=== PATIENT | female | born 1990 | race Caucasian/White ===

== ENCOUNTER 2022-11-20 03:16 | Inpatient (IN) ==
[2022-11-20] MEDS ORDERED: LIDOCAINE 1% LOCAL 20 ML VIAL INFIL PRN (03:36)
[2022-11-20] MEDS ORDERED: OXYTOCIN 30 UNITS/500 ML BAG IV PRN ×2 (03:36→08:49)
[2022-11-20] MEDS ORDERED: LACTATED RINGER'S 1,000 ML IV PRN (03:36)
--- NOTE | 2022-11-20 03:42 | History & Physical Report ---
Date of Service November 20, 2022 Assessment & Plan (1) Active labor at term: Plan: 32-year-old G1, P0 at 40 weeks and 5 days of gestation presenting today with regular contractions and cervical change, in active labor, Vital signs stable afebrile, No medical problems, heart rate reassuring, GBS negative, Desires epidural for pain, Plan to admit, monitor, labs, epidural for pain and anticipate , All questions were answered. (2) Post-term , 40-42 weeks of gestation: History of Present Illness Primary Care Provider: NO PCP Patient is a 32-year-old G1, P0 at 40 weeks and 5 days of gestation who started to have contractions around 1 AM this morning. They got more painful and regular, every 2 to 3 minutes for the last hour or so. She denies leakage of fluid or vaginal bleeding. She reports good movements. Her has been uncomplicated except Rh- and she was given RhoGAM at 28 weeks. She denies any medical problems. GBS negative. Allergies Allergy/AdvReac Type Severity Reaction Status Date / Time No Known Allergies Allergy Unverified 11/20/22 03:38 Home Medications Medication Instructions Recorded Confirmed Type cyanocobalamin (vitamin B-12) 1,000 mcg PO DAILY 11/20/22 11/20/22 History 1,000 mcg tablet (Vitamin B-12) vit no.95-ferrous 1 tab PO DAILY 11/20/22 11/20/22 History fumarate 28 mg-folic acid 800 mcg tablet () Patient History Medical History No known health problems Surgical History [place] teeth extracted 2014 Family History Grandmother (Maternal) Breast cancer Social History Hx Alcohol Use: No Hx Substance Use: No Preferred Language: Iraqi Beliefs That Will Affect Care: None marital status: marital status details: Juan MartinezWiqtbe-[phone] Current Living Situation: Spouse current occupational status: employed current occupation: FARM CONTRACTOR Feels Safe at Home: Yes Diet: regular 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 Review of Systems as per Subjective / HPI Physical Exam Constitutional: WD/WN, vitals as above well developed, well nourished and + acute distress (With contractions) Genitourinary: normal external appearance OB Exam Abdomen: + vertex Manual OB Exam: + cervical dilation 5 cm, + cervical effacement 90% and + station -1 OB Exam Monitor Tracing: + external uterine monitor used and + category I
[2022-11-20] MEDS ORDERED: BUTORPHANOL TARTRATE 1 MG/ML VIAL IV ONE (04:11)
[2022-11-20 04:19] LABS: Hemoglobin 14.1 g/dl (12.0-16.0); Mean Corpuscular Hemoglobin 33.9 pg (25.0-34.0); Mean Corpuscular Hgb Conc 35.3 g/dL (32.0-36.0); Mean Corpuscular Volume 96.2 fL (80.0-100.0); Mean Platelet Volume 11.7 fL (9.4-12.4); Platelet Count 211 K/uL (130-400); RDW Coefficient of Variation 14.1 % (11.5-14.5); RDW Standard Deviation 49.8 fL (36.4-46.3); Red Blood Count 4.16 M/uL (4.20-5.40); White Blood Count 12.36 K/ul (4.8-10.8)
[2022-11-20] MEDS ORDERED: LIDOCAINE 2%/EPINEPHRINE 1:200,000 20 ML PF ONE (04:28)
[2022-11-20] MEDS ORDERED: SODIUM CHLORIDE 0.9% PF INJ 10 ML VIAL ONE (04:28)
[2022-11-20] MEDS ORDERED: BUPIVACAINE 0.25% PF 30 ML VIAL ONE (04:28)
[2022-11-20] MEDS ORDERED: fentaNYL citrate PF 100 MCG/2 ML VIAL ONE (04:28)
[2022-11-20] MEDS ORDERED: fentaNYL 2MCG/ML ROPIVACAINE 1.25MG/ML 100 ML BAG EPI ONE (04:29)
--- NOTE | 2022-11-20 04:29 | Obstetrical Progress Note ---
Date of Service November 20, 2022 Assessment & Plan Admission and Anticipated Discharge Date Admission Date: November 20, 2022 Subjective Patient is getting more painful and feels pressure Awaiting for epidural VE; 8/ 90%/ 0 station, no bag FHR categ I Ctxs q 2-3 min Continue to monitor closely Results & Data Vital Signs (Past 12 Hours) Vital Signs Temp Pulse Resp BP 11/20/22 03:29 20 11/20/22 03:29 36.8 C 20 11/20/22 04:01 75 126/80 11/20/22 03:40 18
[2022-11-20] MEDS ORDERED: fentaNYL 2MCG/ML ROPIVACAINE 1.25MG/ML 100 ML BAG EPI PRN (05:15)
[2022-11-20] MEDS ORDERED: fentaNYL citrate PF 100 MCG/2 ML VIAL EPI STA (05:15)
[2022-11-20] MEDS ORDERED: BUPIVACAINE 0.25% PF 30 ML VIAL EPI PRN (05:15)
[2022-11-20] MEDS ORDERED: ONDANSETRON INJ 2 MG/ML 2 ML VIAL IV PRN (05:15)
[2022-11-20] MEDS ORDERED: SODIUM CHLORIDE 0.9% PF INJ 10 ML VIAL EPI STA (05:15)
[2022-11-20] MEDS ORDERED: fentaNYL citrate PF 100 MCG/2 ML VIAL EPI PRN (05:15)
[2022-11-20] MEDS ORDERED: LIDOCAINE 2%/EPINEPHRINE 1:200,000 20 ML PF EPI STA (05:15)
[2022-11-20] MEDS ORDERED: diphenhydrAMINE 50 MG/ML VIAL IV PRN (05:15)
[2022-11-20] MEDS ORDERED: LIDOCAINE 2% MPF LOCAL 5 ML VIAL EPI PRN (05:15)
[2022-11-20] MEDS ORDERED: NALBUPHINE HCL INJ 10 MG/ML AMP IV PRN (05:15)
[2022-11-20] MEDS ORDERED: NALOXONE HCL 1 MG in SODIUM CHLORIDE 0.9% 1000ML 1,000 ML IV PRN (05:15)
[2022-11-20] MEDS ORDERED: NALOXONE HCL 0.4 MG/1 ML VIAL/CARP IV PRN (05:15)
[2022-11-20] MEDS ORDERED: SODIUM CHLORIDE 0.9% PF INJ 10 ML VIAL EPI PRN (05:15)
[2022-11-20] MEDS ORDERED: METOCLOPRAMIDE HCL 20 MG in SODIUM CHLORIDE 0.9% 50 ML IV PRN (05:15)
[2022-11-20] MEDS ORDERED: BUPIVACAINE 0.25% PF 30 ML VIAL EPI STA (05:15)
[2022-11-20] MEDS ORDERED: ePHEDrine sulfate 50 MG/ML AMP IV PRN (05:15)
[2022-11-20] MEDS ORDERED: ROPIVACAINE 0.5% PF 5 MG/ML 20 ML VIAL EPI PRN (05:15)
--- NOTE | 2022-11-20 05:15 | Anesthesiology Consultation ---
Date of Service November 20, 2022 Assessment & Plan Chart Review Chart Review: Acceptable Risk for Labor Epidural Consults Requested none ASA ASA2 Proposed Anesthesia Anesthesia Type: Labor Epidural Risk / Benefits Reviewed With: PT / POA / Parent / Guardian, Accepts Plan and Informed Consent Obtained History Height/Weight Height: 5 ft 6 in Weight: 83.007 kg Allergies Allergy/AdvReac Type Severity Reaction Status Date / Time No Known Allergies Allergy Unverified 11/20/22 03:38 Medications Home Medications Medication Instructions Recorded Confirmed Last Taken cyanocobalamin (vitamin B-12) 1,000 mcg PO DAILY 11/20/22 11/20/22 11/19/22 21:00 1,000 mcg tablet (Vitamin B-12) vit no.95-ferrous 1 tab PO DAILY 11/20/22 11/20/22 11/19/22 21:00 fumarate 28 mg-folic acid 800 mcg tablet () Active Medications Generic Name Dose Route Start Last Admin Trade Name Freq PRN Reason Stop Dose Admin Lactated Ringer's 1,000 mls @ 150 mls/hr 11/20/22 03:36 11/20/22 04:40 Lr IV 11/22/22 03:35 150 mls/hr .[id number] PRN Infusion L&D Protocol Protocol NPO Date Last Intake of Fluids: 11/20/22 Time Last Intake of Fluids: 04:30 Date Last Intake of Solids: 11/19/22 Time Last Intake of Solids: 20:30 Past Medical History Medical History No known health problems Exercise / Class Metabolic Activity II 4-5 Yardwork/Stairs/Walk up hill Past Family History Family History Grandmother (Maternal) Breast cancer Past Surgical History Surgical History [place] teeth extracted 2014 Past Anesthesia History No Hx of Anesthesia Complications and No Family Hx of Anesthesia Complications History of PONV No Hx of PONV and No Hx of Motion Sickness Social History Smoking Status: Never smoker Hx Alcohol Use: No Hx Substance Use: No substance use type: does not use Physical Exam Vital Signs Last Vital Signs Temp 36.8 C 05/06/23 03:29 Pulse 61 11/20/22 04:48 Resp 18 11/20/22 03:40 BP 126/80 11/20/22 04:01 Pulse Ox 96 11/20/22 04:48 ENMT Mouth: no TMJ abnormality Thyromental Distance: > or= 3.5 Finger Breadths Mallampati Class: II Neck normal visual inspection and trachea midline; neck extension not limited Respiratory normal respiratory effort Auscultation: lungs clear to auscultation bilaterally Cardiovascular Rate/Rhythm: regular rate and regular rhythm Heart Sounds: no murmur Musculoskeletal Spine: normal cervical ROM Extremities: full ROM of extremities Neurologic moves all extremities Psychiatric Orientation: alert and oriented x 3 Testing Laboratory Results 11/20/22 03:53
[2022-11-20] MEDS ORDERED: MEASLES, MUMPS & RUBELLA VIRUS VIAL SQ ONE (08:49)
[2022-11-20] MEDS ORDERED: bisacodyL 10 MG SUPP PR PRN (08:49)
[2022-11-20] MEDS ORDERED: DIPHTHERIA/TETANUS/PERTUSSIS 0.5mL SYR/VIAL (Age 7+yrs) IM ONE (08:49)
[2022-11-20] MEDS ORDERED: BENZOCAINE 20% AER SPR 82.5 GM CAN EXT PRN (08:49)
[2022-11-20] MEDS ORDERED: oxyCODONE/ACETAMINOPHEN 5mg/325mg TAB PO PRN (08:49)
[2022-11-20] MEDS ORDERED: HYDROCORTISONE ACETATE 25 MG SUPP PR PRN (08:49)
[2022-11-20] MEDS ORDERED: ACETAMINOPHEN 325 MG TAB PO PRN (08:49)
--- NOTE | 2022-11-20 08:53 | Delivery Summary ---
Vaginal Delivery Summary Date of Service November 20, 2022 Vaginal Delivery Summary Patient was found to be fully dilated and desired to push. She pushed for about half an hour and delivered the head without difficulty. The shoulders were delivered with minimal traction and the baby was handed to the mother, the mouth and nose were suctioned and the cord was clamped times and cut. Cord blood was obtained. The vagina and perineum were checked for lacerations. There was a first-degree clitoral laceration in the middle of the upper labia it was pumping blood. It was repaired with 3-0 Vicryl on SH needle with multiple figure of 8 stitches and it was hemostatic. There was a second-degree vaginal lacerations at 7 and 4:00 positions. Those were repaired with 2-0 Vicryl in a running locked fashion skin in a subcuticular fashion. And excellent hemostasis was achieved. The placenta was found to be the vagina delivered spontaneously as intact and complete. Uterus was explored and found to be empty. The lower segment was cleared of all clots and debris's, fundus was firm and EBL was 300 mL. The mom and baby tolerated procedure well. Sponge needle instrument count was correct x2. There was a viable male infant, Apgars 8/9 and weight is pending. No complications happened and I was present during whole procedure.
--- NOTE | 2022-11-20 09:24 | Anesthesia Procedure Note ---
Date of Service November 20, 2022 Anesthesia Post Epidural Note Vital Signs Vital Signs: Temp Pulse Resp BP Pulse Ox 36.6 C 87 18 95/57 L 93 11/20/22 07:06 11/20/22 09:18 11/20/22 09:00 11/20/22 09:18 11/20/22 08:14 Pain Intensity Bilateral Abdomen: Pain Intensity: 2 Notes Mental Status: alert / awake / arousable Nausea / Vomiting: adequately controlled Pain: adequately controlled Airway Patency, RR, SpO2: stable & adequate BP & HR: stable & adequate Hydration State: stable & adequate Neuraxial Anesthesia: was administered and sensory block is resolving Anesthetic Complications: no major complications apparent Epidural: Removed without complications and With tip intact
[2022-11-20] MEDS: IBUPROFEN 600 MG TAB PO PRN ×2 (14:40→20:38)
[2022-11-20] MEDS: DOCUSATE SODIUM 100 MG CAP PO SCH (20:38)
[2022-11-21] MEDS: IBUPROFEN 600 MG TAB PO PRN ×4 (00:47→22:55)
[2022-11-21 06:30] LABS: Hematocrit (blood only) 32.4 % (37.0-47.0); Mean Corpuscular Hemoglobin 33.2 pg (25.0-34.0); Mean Corpuscular Volume 97.9 fL (80.0-100.0); Mean Platelet Volume 11.5 fL (9.4-12.4); Platelet Count 178 K/uL (130-400); RDW Coefficient of Variation 14.4 % (11.5-14.5); RDW Standard Deviation 51.6 fL (36.4-46.3); Red Blood Count 3.31 M/uL (4.20-5.40); White Blood Count 12.45 K/ul (4.8-10.8)
[2022-11-21] MEDS: DOCUSATE SODIUM 100 MG CAP PO SCH ×2 (07:56→20:39)
[2022-11-21] MEDS: PRENATAL VITAMIN 1 TAB PO SCH (07:56)
[2022-11-21] MEDS: FERROUS SULFATE 325 MG TAB PO SCH (07:56)
--- NOTE | 2022-11-21 08:31 | Obstetrical Progress Note ---
Date of Service November 21, 2022 Assessment & Plan (1) Normal course: Continue routine care Anticipate discharge home tomorrow Subjective Ambulation: ambulating normally Voiding: voiding difficulty Passing Gas:: Yes Diet Tolerance:: regular diet Lochia:: Small Feeding Type:: breast feeding Current Pain Level(1-10): 0 Patient doing well at this time, had a Sorto inserted yesterday as she was unable to void, Sorto was removed at 630 this morning. Has not voided yet. Denies any other complaints at this time Physical Exam Constitutional WD/WN, vitals as above Respiratory normal respiratory effort, lungs clear to auscultation Cardiovascular RRR, no murmur, no edema Gastrointestinal (Abdomen) normal bowel sounds, soft, nontender, no hepatosplenomegaly Results & Data Vital Signs (Past 12 Hours) Vital Signs Temp Pulse Resp BP Pulse Ox O2 Del Method 11/21/22 03:45 36.6 C 81 18 96/58 L 96 Room Air 11/20/22 23:09 36.8 C 90 16 101/68 95 Room Air Laboratory Results Laboratory Results WBC 12.45 K/ul (4.8-10.8) H 11/21/22 05:47 RBC 3.31 M/uL (4.20-5.40) L 11/21/22 05:47 Hgb 11.0 g/dl (12.0-16.0) L D 11/21/22 05:47 Hct 32.4 % (37.0-47.0) L 11/21/22 05:47 MCV 97.9 fL (80.0-100.0) 11/21/22 05:47 MCH 33.2 pg (25.0-34.0) 11/21/22 05:47 MCHC 34.0 g/dL (32.0-36.0) 11/21/22 05:47 RDW Std Deviation 51.6 fL (36.4-46.3) H 11/21/22 05:47 RDW Coeff of Sanjiv 14.4 % (11.5-14.5) 11/21/22 05:47 Plt Count 178 K/uL (130-400) 11/21/22 05:47 MPV 11.5 fL (9.4-12.4) 11/21/22 05:47 SARS-CoV-2, RNA, NAAT NEGATIVE (NEGATIVE) 11/20/22 03:55
--- NOTE | 2022-11-21 09:17 | Surgery Consultation ---
Date of Consultation November 21, 2022 Assessment & Plan (1) Pilonidal cyst without infection: 32-year-old female with noninfected pilonidal cyst. No indication for incision and drainage or antibiotics at this time. I discussed the etiology, exacerbating factors, and treatment options of pilonidal disease with the patient. First-line therapy is typically medical with keeping the area free of hair and debris, avoiding pressure and trauma to the area to include sit ups on hard surfaces, long periods of sitting, and any other exacerbating factors. Symptoms are typically treated with warm water soaks. Most pilonidal disease improves as patient's enter their 30s. We discussed surgical options which are typically reserved for patients who have had 2 or more episodes that required incision and drainage, or have chronic inflammation in the area. We discussed the hallmarks of surgical management to include excision of the sinuses and underlying tracts as well as any additional cysts. The wound is then managed with either primary closure, modified closure, were left open to heal by secondary intent. I reviewed the high rate of recurrence, wound complications, and infections with the patient. We also discussed the prolonged recovery following surgery. We discussed the risks of pilonidal cystectomy to include bleeding, infection, recurrence, need for future or more extensive surgery, prolonged wound healing and wound complications, pain, and the risks of anesthesia. At this point there is no indication for antibiotics or acute surgical intervention Recommend warm water soaks, avoid trauma to the area If symptoms worsen could consider course of antibiotics She may follow-up as needed in the general surgery clinic Surgery will sign off, call with questions or concerns (2) state: History of Present Illness Reason for Consultation: Pilonidal cyst Attending Physician: Timothy Ruiz MD History of Present Illness 32-year-old female, surgery consulted for pilonidal cyst. She delivered a healthy baby boy yesterday but over the past 2 weeks has noticed some increased swelling over her sacrum. She had a history of a pilonidal cyst that required incision and drainage several years ago. She has not had any issues since. Otherwise healthy. Allergies Allergy/AdvReac Type Severity Reaction Status Date / Time No Known Allergies Allergy Unverified 11/20/22 03:38 Home Medications Medication Instructions Recorded Confirmed Type cyanocobalamin (vitamin B-12) 1,000 mcg PO DAILY 11/20/22 11/20/22 History 1,000 mcg tablet (Vitamin B-12) vit no.95-ferrous 1 tab PO DAILY 11/20/22 11/20/22 History fumarate 28 mg-folic acid 800 mcg tablet () Patient History Medical History (Updated 11/21/22 @ 09:15 by Mauro Rios DO, FACS) No known health problems Pilonidal cyst without infection state Surgical History [place] teeth extracted 2014 Family History Grandmother (Maternal) Breast cancer Social History Smoking Status: Never smoker Hx Alcohol Use: No Hx Substance Use: No Preferred Language: Romansh Communication Ability: Effective Substance Addiction Coordinator Required: No Beliefs That Will Affect Care: None marital status: marital status details: Juan MartinezNqcebh-[phone] Current Living Situation: Spouse current occupational status: employed current occupation: CUSTOMER ENGAGEMENT MANAGER Other Information That Helps Us Care for You: No Feels Safe at Home: Yes Safety Concerns: Feels Safe At This Time Diet: regular Gender Identity: Female Assistive Devices: Glasses Review of Systems Review of Systems: All systems reviewed & are unremarkable except as noted in HPI & below Physical Exam Constitutional: WD/WN, vitals as above Respiratory: normal respiratory effort, lungs clear to auscultation Cardiovascular: RRR, no murmur, no edema Gastrointestinal (Abdomen): normal bowel sounds, soft, nontender, no hepatosplenomegaly Skin: Noninfected pilonidal cyst, small midline sinus. Results & Data Vital Signs (Past 12 Hours) Vital Signs Temp Pulse Resp BP Pulse Ox O2 Del Method 11/21/22 07:50 36.4 C L 74 18 94/64 L Room Air 11/21/22 03:45 36.6 C 81 18 96/58 L 96 Room Air 11/20/22 23:09 36.8 C 90 16 101/68 95 Room Air PG Care Time/CCT Total # of Minutes Spent Total Time Spent with Patient: Total time spent is greater than 50% in coordination of care (as documented) at patient's floor/unit and/or counseling patient: Coding Level of Care Code 28557 IN/OBS CONSULT LVL 2,35M Diagnoses Pilonidal cyst without infection L05.91 state Z39.2
[2022-11-21] MEDS ORDERED: bisacodyL 5 MG TABEC PO SCH (20:00)
[2022-11-22 06:46] LABS: Hematocrit (blood only) 29.8 % (37.0-47.0); Hemoglobin 10.2 g/dl (12.0-16.0)
[2022-11-22] MEDS: FERROUS SULFATE 325 MG TAB PO SCH (07:49)
[2022-11-22] MEDS: PRENATAL VITAMIN 1 TAB PO SCH (07:49)
[2022-11-22] MEDS: DOCUSATE SODIUM 100 MG CAP PO SCH (07:49)
--- NOTE | 2022-11-22 11:16 | Obstetrical Progress Note ---
Date of Service November 22, 2022 Subjective Ambulation: ambulating normally Voiding: no voiding problems Passing Gas:: Yes Diet Tolerance:: regular diet Lochia:: Small Feeding Type:: breast feeding Current Pain Level(1-10): 0 doing well Physical Exam Constitutional WD/WN, vitals as above Gastrointestinal (Abdomen) Inspection/Auscultation: abdomen normal to inspection Musculoskeletal Extremities: extremities normal to inspection Skin no rashes, warm and dry Neurologic patellar DTR's 2+ bilat, sensation intact Psychiatric A+Ox3, euthymic affect Results & Data Vital Signs (Past 12 Hours) Vital Signs Temp Pulse Resp BP O2 Del Method 11/22/22 08:10 36.6 C 73 18 98/64 L Room Air Laboratory Results 11/20/22 11/20/22 11/21/22 03:53 03:55 05:47 WBC 12.36 H 12.45 H RBC 4.16 L 3.31 L Hgb 14.1 11.0 L D Hct 40.0 32.4 L MCV 96.2 97.9 MCH 33.9 33.2 MCHC 35.3 34.0 RDW Std Deviation 49.8 H 51.6 H RDW Coeff of Sanjiv 14.1 14.4 Plt Count 211 178 MPV 11.7 11.5 SARS-CoV-2, RNA, NAAT NEGATIVE Blood Type Antibody Screen Screen 11/21/22 11/22/22 05:47 06:10 WBC RBC Hgb 10.2 L Hct 29.8 L MCV MCH MCHC RDW Std Deviation RDW Coeff of Sanjiv Plt Count MPV SARS-CoV-2, RNA, NAAT Blood Type O Negative Antibody Screen NEGATIVE Screen Negative
[2022-11-22] MEDS: IBUPROFEN 600 MG TAB PO PRN (11:26)
== END 2022-11-22 13:35 | disposition home or self-care (01) | DRG 807 ==
LOC: OPB 03:16 → 4S1 03:21 → 4E2 14:05

== ENCOUNTER 2024-10-25 22:09 | Inpatient (IN) ==
[2024-10-25] MEDS ORDERED: LIDOCAINE 1% LOCAL 20 ML VIAL INFIL PRN (22:51)
[2024-10-25] MEDS: LACTATED RINGER'S 1,000 ML IV PRN (23:05)
--- NOTE | 2024-10-25 23:26 | History & Physical Report ---
Date of Service October 25, 2024 Assessment & Plan Admission and Anticipated Discharge Date Admission Date: October 25, 2024 History of Present Illness Chief Complaint: onset of labor at term Primary Care Provider: NO PCP 34 f P1001 at 40.5 weeks presents to L&D in active labor. GBS is negative. Allergies Allergy/AdvReac Type Severity Reaction Status Date / Time No Known Allergies Allergy Unverified 11/20/22 03:38 Home Medications Medication Instructions Recorded Confirmed Type vit no.95-ferrous 1 tab PO DAILY 11/20/22 10/25/24 History fumarate 28 mg-folic acid 800 mcg tablet () B-6-500 PO DAILY 10/25/24 History Colace PO PRN Constipation 10/25/24 History iron 325 mg PO DAILY 10/25/24 10/25/24 History Patient History Medical History No known health problems Surgical History [place] teeth extracted 2014 Family History Grandmother (Maternal) Breast cancer Social History Smoking Status: Never smoker Hx Alcohol Use: No Hx Substance Use: No Preferred Language: Polish Communication Ability: Effective Core Shaper Top Required: No Beliefs That Will Affect Care: None marital status: marital status details: Juan MartinezMzqmnl-[phone] Current Living Situation: Spouse current occupational status: employed current occupation: OPERATING ROOM ASSISTANT Other Information That Helps Us Care for You: No Feels Safe at Home: Yes Safety Concerns: Feels Safe At This Time Diet: regular Gender Identity: Female Assistive Devices: Glasses OB History x1 CHICKEN CATCHER History neg Review of Systems All systems reviewed & are unremarkable except as noted in HPI & below Physical Exam Constitutional: WD/WN, vitals as above Eyes: PERRL, conjunctivae normal, anicteric sclerae Respiratory: normal respiratory effort, lungs clear to auscultation Cardiovascular: Rate/Rhythm: regular rate and regular rhythm Gastrointestinal (Abdomen): Inspection/Auscultation: abdomen normal to inspection Musculoskeletal: Extremities: extremities normal to inspection Psychiatric: A+Ox3, euthymic affect Genitourinary: Manual OB Exam: + cervical dilation 6 cm, + cervical effacement 90% and + station -1 OB Exam Monitor Tracing: + external FHT monitor used, + external uterine monitor used, + category I and + normal FHT variability Results & Data Vital Signs (Past 12 Hours) Vital Signs Temp Pulse Resp BP 10/25/24 22:42 18 10/25/24 22:42 36.5 C 18 10/25/24 22:33 81 109/68 10/25/24 22:28 36.5 C 18
[2024-10-25 23:29] LABS: Hematocrit (blood only) 38.4 % (37.0-47.0); Hemoglobin 13.1 g/dl (12.0-16.0); Mean Corpuscular Hemoglobin 32.9 pg (25.0-34.0); Mean Corpuscular Hgb Conc 34.1 g/dL (32.0-36.0); Mean Corpuscular Volume 96.5 fL (80.0-100.0); Mean Platelet Volume 11.4 fL (9.4-12.4); Platelet Count 191 K/uL (130-400); RDW Coefficient of Variation 14.6 % (11.5-14.5); Red Blood Count 3.98 M/uL (4.20-5.40); White Blood Count 10.58 K/ul (4.8-10.8)
[2024-10-25] MEDS ORDERED: ePHEDrine sulfate 50 MG/ML AMP IV PRN (23:37)
[2024-10-25] MEDS ORDERED: NALBUPHINE HCL INJ 10 MG/ML AMP IV PRN (23:37)
[2024-10-25] MEDS ORDERED: NALOXONE HCL 0.4 MG/1 ML VIAL/CARP IV PRN (23:37)
[2024-10-25] MEDS ORDERED: ROPIVACAINE 0.5% PF 5 MG/ML 20 ML VIAL EPI PRN (23:37)
[2024-10-25] MEDS ORDERED: BUPIVACAINE 0.25% PF 30 ML VIAL EPI PRN (23:37)
[2024-10-25] MEDS ORDERED: SODIUM CHLORIDE 0.9% PF INJ 10 ML VIAL EPI PRN (23:37)
[2024-10-25] MEDS ORDERED: fentaNYL citrate PF 100 MCG/2 ML VIAL EPI PRN (23:37)
[2024-10-25] MEDS ORDERED: LIDOCAINE 2% MPF LOCAL 5 ML VIAL EPI PRN (23:37)
[2024-10-25] MEDS ORDERED: NALOXONE HCL 1 MG in SODIUM CHLORIDE 0.9% 1,000 ML IV PRN (23:37)
[2024-10-25] MEDS ORDERED: fentANYL 2 MCG/ML BUPIVacaine 0.125%-NSS 100ML BAG EPI PRN (23:37)
[2024-10-25] MEDS ORDERED: diphenhydrAMINE 50 MG/ML VIAL IV PRN (23:37)
--- NOTE | 2024-10-25 23:37 | Anesthesiology Consultation ---
Date of Service October 25, 2024 Assessment & Plan Chart Review Chart Review: Acceptable Risk for Labor Epidural Consults Requested none History Height/Weight Height: 5 ft 6 in Weight: 82.554 kg Allergies Allergy/AdvReac Type Severity Reaction Status Date / Time No Known Allergies Allergy Unverified 11/20/22 03:38 Medications Home Medications Medication Instructions Recorded Confirmed Last Taken vit no.95-ferrous 1 tab PO DAILY 11/20/22 10/25/24 10/24/24 21:00 fumarate 28 mg-folic acid 800 mcg tablet () B-6-500 PO DAILY 10/25/24 10/24/24 21:00 Colace PO PRN Constipation 10/25/24 10/24/24 21:00 iron 325 mg PO DAILY 10/25/24 10/25/24 10/24/24 21:00 Active Medications Generic Name Dose Route Start Last Admin Trade Name Freq PRN Reason Stop Dose Admin Lactated Ringer's 1,000 mls @ 125 mls/hr 10/25/24 22:51 10/25/24 23:05 Lr IV 10/26/24 22:50 999 mls/hr .Q8H PRN Administration L&D Protocol Protocol Past Medical History Medical History No known health problems Past Family History Family History Grandmother (Maternal) Breast cancer Past Surgical History Surgical History [place] teeth extracted 2014 Social History Smoking Status: Never smoker Hx Alcohol Use: No Hx Substance Use: No substance use type: does not use Physical Exam Vital Signs Last Vital Signs Temp 36.5 C 10/25/24 22:42 Pulse 81 10/25/24 22:33 Resp 18 10/25/24 22:42 BP 109/68 10/25/24 22:33 Testing Laboratory Results 10/25/24 23:09
[2024-10-25] MEDS: fentANYL 2 MCG/ML BUPIVacaine 0.125%-NSS 100ML BAG ONE (23:58)
[2024-10-25] MEDS: LIDOCAINE 2%/EPINEPHRINE 1:200,000 20 ML PF ONE (23:58)
[2024-10-26] MEDS: LIDOCAINE 2%/EPINEPHRINE 1:200,000 20 ML PF EPI STA (00:05)
[2024-10-26] MEDS: fentaNYL citrate PF 100 MCG/2 ML VIAL EPI STA (00:05)
[2024-10-26] MEDS: SODIUM CHLORIDE 0.9% PF INJ 10 ML VIAL EPI STA (00:05)
[2024-10-26] MEDS: BUPIVACAINE 0.25% PF 30 ML VIAL EPI STA (00:05)
[2024-10-26] MEDS: SODIUM CHLORIDE 0.9% PF INJ 10 ML VIAL ONE (00:11)
[2024-10-26] MEDS: fentaNYL citrate PF 100 MCG/2 ML VIAL ONE (00:11)
[2024-10-26] MEDS: BUPIVACAINE 0.25% PF 30 ML VIAL ONE (00:11)
[2024-10-26] MEDS: ePHEDrine sulfate 50 MG/ML AMP ONE (00:11)
[2024-10-26] MEDS: OXYTOCIN 30 UNITS/NSS 30 UNITS/500 ML BAG IV PRN (02:43)
[2024-10-26] MEDS ORDERED: OXYTOCIN 30 UNITS/NSS 30 UNITS/500 ML BAG IV PRN (02:58)
[2024-10-26] MEDS ORDERED: HYDROCORTISONE ACETATE 25 MG SUPP PR PRN (02:58)
[2024-10-26] MEDS ORDERED: BENZOCAINE 20% SPRY 85 APPLN/85 GM CAN EXT PRN (02:58)
[2024-10-26] MEDS ORDERED: bisacodyL 10 MG SUPP PR PRN (02:58)
--- NOTE | 2024-10-26 03:01 | Delivery Summary ---
Vaginal Delivery Summary Date of Service October 26, 2024 Vaginal Delivery Summary i was called for delivery and patient delivered spontaneously live female by nurse with no complications. Apgars 8/9 birthweight pending. Cord blood obtained followed by spontaneous delivery of intact placenta. No tears. QBL 100 ml. Final sponge and instrument counts are correct. Mom and baby stable.
[2024-10-26] MEDS: DIPHTHER/TETAN/PERTUS Vaccine (Tdap, Adol/Adult) 0.5mL IM ONE (03:18)
--- NOTE | 2024-10-26 03:30 | Anesthesia Procedure Note ---
Date of Service October 26, 2024 Anesthesia Post Epidural Note Vital Signs Vital Signs: Temp Pulse Resp BP Pulse Ox 37.0 C 70 18 103/66 100 10/26/24 01:54 10/26/24 03:15 10/26/24 01:54 10/26/24 03:15 10/26/24 02:43 Pain Intensity Abdomen: Pain Intensity: 8 Notes Mental Status: alert / awake / arousable and participated in evaluation Nausea / Vomiting: adequately controlled Pain: adequately controlled Airway Patency, RR, SpO2: stable & adequate BP & HR: stable & adequate Hydration State: stable & adequate Neuraxial Anesthesia: was administered and sensory block is resolving Anesthetic Complications: no major complications apparent and Pt Satisfied with anesthetic care Epidural: Removed without complications and With tip intact
--- OUTSIDE RECORDS SUMMARY | 2024-10-26 03:39 | External Medical Summary | Summary of Care ---
Author Name Unknown Organization [facility] Address [address] [facility] [place] [address] Phone [phone] Care Team Providers Care Solder Technician Name Role Phone Unavailable Primary Care Provider Unavailabl e Reason for Visit * Reason Comments Return Visit Encounter Details Date Type Department Care Team (Late st Contact Info) Description 10/11/2024 1:15 PM EDT Office Visit Gynecology/Obstetics [place] [address] [place] [phone] Teena Ly PA-C [address] [place] [phone] Rh negative, antepartum*; Supervision of other normal , antepartum; Marginal insertion of umbilical cord affecting management of mother Allergies No known active allergiesdocumented as of this encounter (statuses as of 10/11/2024) Medications /Folic Acid+DHA 27-0.8-200 MG Oral Capsule Take by mouth . Active Acetaminophen 325 MG Oral Tablet (Tylenol) Take 3 Tablets by mouth every 8 hours as needed for Pain, Mild or Pain, Moderate. Alternate with Ibuprofen 30 Tablet 4 Active Ondansetron 4 MG Oral Tablet Disintegrating (Zofran)Indication s: related nausea, antepartum Place 1 Tablet on tongue every 8 hours as needed for Nausea. dissolve on tongue. 45 Tablet 1 4 Active B-6 100 MG Oral Tablet Take by mouth. Active Famotidine 20 MG Oral Tablet (Pepcid) Take 1 Tablet by mouth at bedtime as needed for Heartburn. 30 Tablet 2 5 Active Ferrous Sulfate 325 (65 Fe) MG Oral Tablet (Feosol)Indication s:Antepartum anemia complicating Take 1 Tablet by mouth in the morning. 90 Tablet 2 5 Active documented as of this encounter (statuses as of 10/11/2024) Active Problems Problem Noted Date Diagnosed Date Marginal insertion of umbili jaycob cord affecting management of mother 09/02/2024 Overview (09/16/2024): Declines growth ultrasound. Will continue to monitor fundal height. Supervision of other normal , antepartu 04/24/2024 Overview (09/16/2024): Estimated Date of Delivery: 11/02/24 Blood type: O-, rhogam given on 08/13/2024. Rubella not immune/ NIPT: declines S/p anatomy ultrasound. S/p CBC - anemia on iron. Passed 1 hour glucose test. TDAP vaccine completed. Plans to breastfeed. Patient is going to check insurance about breast pump. contraception: fertility awareness. GBS at 36 weeks related nausea, antepartum 04/24/2024 Retained products of conception after miscarriag e 10/26/2023 Missed 10/26/2023 Rh negative, antepartum 09/15/2023 Overview (09/02/2024): Rhogam given on 08/13/2024. Varicose veins during 09/14/2022 Overview (09/14/2022): Varicose veins in right ankle area. Patient asymptomatic. Antepartum anemia complicating 023 Overview (09/16/2024): Ferritin 16. Taking iron. Rh negative status during in third tri mester 06/14/2022 Overview (08/24/2022): Rhogam given on 08/24/2022 at 28 weeks, 1 day. Sebaceous cyst 12/25/2020 Estimated Date of Delivery Comme nts Yes 11/02/2024 Based on last me nstrual period of 01/27/2024 (Exact Date) documented as of this encounter (statuses as of 10/11/2024) Resolved Problems Problem Noted Date Diagnosed Date Resolved Date Supervision of normal first , antepartum 05/03/2022 08/28/2024 Overview (11/02/2022): MARY KATE 11/15/2022 Rub/Varc immune O negative - Rhogam given on 08/24/2022. Influenza vaccine: Pt reported 05/09/2022. NIPT:Pt declines upon counseling. Cystic fibrosis: Pt declines upon counseling. MSAFP at 16 to 22 weeks. Pt declines upon counseling. S/p anatomy ultrasound - anatomy and growth normal. VARIABLE presentation. CBC show anemia - on vitamin B12. Passed one hour glucose test. Tdap vaccine completed. GBS negative. Contraceptive: fertility awareness. Desires to breastfeed. Has information about breast pump. Note: Desires [place] delivery. Constipation during pregnanc y in third trimester 05/03/2022 09/28/2022 Overview (07/16/2022): Has Colace if needed. Nausea and vomiting in 05/03/2022 09/28/2022 Overview (05/03/2022): She reports improved with Zofran. She declines further management at this time. documented as of this encounter (statuses as of 10/11/2024) Immunizations Name Administration Dates Next Due Hepatitis A, Ped/Adol., 18 year and below, 2-Dos e 03/14/2013 IPV - Polio Virus Vaccine (Inact) 03/05/2013 TDAP (age 10 and older)(Boostrix) 08/24/2022 TDAP, Age 7 and older, IM (Adacel) 09/12/2024 Yellow Fever Vaccine, Live (YF-Vax) 03/05/2013 documented as of this encounter Social History Tobacco Use Types Packs/Day Years Used Date Smoking Tobacco: Never Smokeless Tobacco: Never Alcohol Use Standard Drinks/Week Comments Not Currently 0 (1 standard drink = 0.6 oz pur e alcohol) PHQ-2 Answer Date Recorded PHQ Adult Total Score 0 12/23/2020 Hunger Vital Sign Answer Date Recorded Within the past 12 months, y ou worried that your food would run out before you got the money to buy more. Never true 06/12/20 24 Within the past 12 months, t he food you bought just didn't last and you didn't have money to get more. Never true 06/12/2024 Lewis Depression Scale Answer Date Recorded Lewis Depression Scale Total 1 09/26/2024 The thought of harming myself has occurred to me . Never 09/26/2024 Childcare Answer Date Recorded Do you feel overwhelmed with taking care of a child, family member or friend? No 06/12/2024 Does your family need help f inding childcare? (Household - for ages 0-17 years) Not on file 06/12/2024 Clothing Answer Date Recorded Have you been unable to get clothing when it was really needed? No 06/12/2024 Is your family able to get c lothes or diapers when needed? (Household - for ages 0-17 years) Not on file 06/12/2024 Personal Safety Answer Date Recorded Do you feel unsafe or have concerns for your saf ety? No 06/12/2024 Do you have concerns for you r family's safety? (Household - for ages 0-17 years) Not on file 06/12/2024 Utilities Answer Date Recorded Do you have trouble paying y our heating, water, or electric bill? No 06/12/2024 Is your family able to pay t he heat, water, or electric bill? (Household - for ages 0-17 years) Not on file 06/12/2024 Does your family have access to good internet? (Household - for ages 0-17 years) Not on file 06/12/2024 Employment Status Answer Date Recorded Are you unemployed or without regular income? No 06/12/2024 Does the household have a re gular source of income? (Household - for ages 0-17 years) Not on file 06/12/2024 Social Connections Answer Date Recorded How often do you feel lonely or isolated from th ose around you? Never 06/12/2024 Financial Resource Strain Answer Date R ecorded Do you have any trouble payi ng for your medications, or do you think you might in the future? No 06/12/2024 Does your family have troubl e paying for medicine? (Household - for ages 0-17 years) Not on file 06/12/2024 Transportation Needs Answer Date Record ed Do you have trouble getting a ride to medical visits or work? (Adult - for ages 18 years and over) Not on file 06/12/2024 Does your family have a hard time getting a ride to doctors visits? (Household - for ages 0-17 years) Not on file 06/12/2024 Has lack of transportation k ept you from medical appointments, meetings, work, or from getting things needed for daily living? Check all that apply. No 06/12/2024 Do you (or your family) have trouble finding or paying for a ride (transportation)? (Household - for ages 0-17 years) Not on file 06/12/2024 Housing Stability Answer Date Recorded Do you currently live in a s helter or have no steady place to sleep at night? No 06/12/2024 Do you think you are at risk of becoming homeless? (Adult - for ages 18 years and over) Not on file 06/12/2024 Does your family worry about paying for your home or becoming homeless? (Household - for ages 0-17 years) Not on file 1 08/12/2023 Are you homeless or worried that you might be in the future? No 06/12/2024 Are you (or your family) stefany eless or worried that you might be in the future? (Household - for ages 0-17 years) Not on file Food Insecurity Answer Date Recorded Do you need food for this week? No 06/12/2024 Are you able to get enough f ood for your family? (Household - for ages 0-17 years) Not on file 06/12/2024 Does your family need food t his week? (Household - for ages 0-17 years) Not on file 06/12/2024 Do you always have enough fo od for your family? (Household - for ages 0-17 years) Not on file 06/12/2024 Food Insecurity Answer Date Recorded Within the past 12 months, y ou worried that your food would run out before you got the money to buy more. Never true 06/12/20 24 Within the past 12 months, t he food you bought just didn't last and you didn't have money to get more. Never true 06/12/2024 Do you need food for this week? 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 Please refer to the documented findings and plan of care. This patient's visit today consisted of an evaluation. I was present and confirmed the findings of the history and exam. Fabio Machuca DO * Teena Ly PA-C - 10/11/2024 1:23 PM EDT Rochelle Martinez presents for visit at 36w6d. BP 106/62 | Wt 82.4 kg (181 lb 11.2 oz) | LMP 01/27/2024 (Exact Date) | BMI 27.63 kg/m² | BSA 1.99m² Doing well. Denies vaginal bleeding, leaking of fluid, vaginal pressure, contractions, abdominal pain, or abnormal vaginal discharge. Denies headaches, blurry vision, or right upper quadrant pain. Patient states she feels good movement. Physical Exam General: alert and oriented, no acute distress Pulmonary: normal respiratory effort, no accessory muscle use. Abdomen: gravid, soft, non-tender heart rate: 130s bpm Fundal height: 37cm Extremities: no edema bilaterally ASSESSMENT/PLAN: 1. Supervision of other normal , antepartum - GBS neg - Cephalic presentation as of 10/03/24 - discussed post dates induction, patient would like to see if she can be induced 11/05. Advised will call L&D and see if date is available 2. Rh negative, antepartum - Rhogam given 08/13/24 3. Marginal insertion of umbilical cord affecting management of mother - fundal height WNL Counseled patient to call triage/go to labor and delivery if she has any vaginal bleeding, leaking of fluid, vaginal pressure, 6 or more painful contractions in an hour, abdominal pain, decreased movements, headaches, blurry vision, or right upper quadrant pain. Patient verbalized understanding. RTO in 1 weeks for return appointment or sooner if any concerns. Teena Ly PA-C documented in this encounter Nursing Notes * Jessa Owens LPN - 10/11/2024 1:19 PM EDT Patient here for BRI Denies concerns documented in this encounter Plan of Treatment Upcoming Encounters Date Type Department Care Team (Latest Contact Info) Description 10/17/2024 1:15 PM EDT Office Visit Gynecology/Obstetic s [place] [address] [facility] [place] [phone] Teena Ly PA-C [address] [place] [phone] 10/24/2024 3:45 PM EDT Office Visit Gynecology/Obstetic s [place] [address] [place] [phone] Lisa Wyatt PA-C [address] [place] [address] 10/31/2024 12:45 PM EDT Office Visit Gynecology/Obstetic s [place] [address] [place] [phone] Teena Ly PA-C [address] [place] [phone] 11/05/2024 8:00 PM EDT Hospital Encounter [email or web address] [place] Women's Lower Level 1st Floor [address] [place] [address] [facility] [address] [place] [address] 11/05/2024 8:00 PM EDT - 11/05/2024 9:20 PM EDT Surgery OBTR [facility], Women's Lower Level 1st Floor [address] [place] [address] [facility] [address] [place] [address] INDUCTION FOR VAGINAL DELIVERY Scheduled Procedures Name Priority Associated Diagnoses Date/Ti me INDUCTION FOR VAGINAL DELIVERY 40 weeks gestation of 11/05/2024 8:00 PM EDT Health Maintenance Due Date Last Done Comments Hepatitis B Vaccine (1 of 3 - 19+ 3-dose series) 2011 Lipid Panel 2012 Depression Screening 12/23/2021 12/23/2020 COVID-19 Vaccine (2023-2 5 season) 2024 Influenza Vaccine (FLU shot) (#1) 2024 Pap Smear 09/14/2026 09/14/2023, 01/02/2021 Cervical Cancer Screening 09/14/2028 HPV/Co-Test 09/14/2028 09/14/2023 DTap/Tdap Vaccines (3 - Td o r Tdap) 09/12/2034 09/12/2024, 08/24/2022 HPV (Gardasil) Vaccine Aged Out No lo nger eligible based on patient's age to complete this topic MENINGOCOCCAL (MENACTRA/MENVEO) Aged Out No longer eligible b ased on patient's age to complete this topic Meningitis B Vaccine (Bexsero/Trumemba) Aged Out No longer eligible b ased on patient's age to complete this topic Pneumococcal Vaccine: Pediatrics (0 to 5 Years) and At-Risk Patients (6 to 18 Years and 19+ Years) Aged Out No longer eligible based on patient's age to complete this topic documented as of this encounter Medical Devices Not on filedocumented as of this encounter Visit Diagnoses Diagnosis Rh negative, antepartum- Primary Rhesus isoimmunization affecting management of mother, antepartum condition Supervision of other normal , antepartum Marginal insertion of umbilical cord affecting management of mother 40 weeks gestation of state, incidental documented in this encounter Advance Directives * Full Code (Latest Code Status on File) Date Activated Date Inactivated Comments 10/26/2023 3:58 PM 10/26/2023 9:05 PM This order r eflects the patients wishes and were consensually agreed upon. Question Answer Comments Discussion of Advance Direct jessica occurred with: Not Discussed due to patient's condition"
--- OUTSIDE RECORDS SUMMARY | 2024-10-26 03:39 | External Medical Summary | Summary of Care ---
Author Name Unknown Organization [facility] Address [address] [place] [address] Phone [phone] Care Team Providers Care Instructor Military Science Name Role Phone Unavailable Primary Care Provider Unavailabl e Encounter Details Date Type Department Care Team (Late st Contact Info) Description 10/15/2024 Orders Only Outcomes Research Department [address] [place] [address] Bharati Pierson CHRA [employer] Research Other*[id number] Allergies No known active allergiesdocumented as of this encounter (statuses as of 10/15/2024) Medications /Folic Acid+DHA 27-0.8-200 MG Oral Capsule [...] mouth in the morning. 90 Tablet 2 Active documented as of this encounter (statuses as of 10/15/2024) Active Problems Problem Noted Date Diagnosed Date Marginal insertion of umbili jaycob cord affecting management of mother 09/02/2024 Overview (09/16/2024): Declines growth ultrasound. Will continue to monitor fundal height. Supervision of other normal , antepartu m 04/24/2024 Overview (09/16/2024): Estimated Date of Delivery: [...] iron. Rh negative status during in third [facility] 06/14/2022 Overview (08/24/2022): Rhogam given on 08/24/2022 at 28 weeks, 1 day. Sebaceous cyst 12/25/2020 Estimated Date of Delivery Comme nts Yes 11/02/2024 Based on last me nstrual period of 01/27/2024 (Exact Date) documented as of this encounter (statuses as of 10/15/2024) Resolved Problems Problem Noted Date Diagnosed Date [...] information about breast pump. Note: Desires [place] delivery. Constipation during pregnanc y in third trimester 05/03/2022 09/28/2022 Overview (07/16/2022): Has Colace if needed. Nausea and vomiting in 05/03/2022 09/28/2022 Overview (05/03/2022): She reports improved with Zofran. She declines further management at this time. documented as of this encounter (statuses as of 10/15/2024) Immunizations Name Administration Dates Next Due Hepatitis [...] money to get more. 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 on file N ot on file documented as of this encounter Plan of Treatment Upcoming Encounters Date Type Department Care Team (Latest Contact Info) Description 10/17/2024 1:15 PM EDT Office Visit Gynecology/Obstetic s [place] [address] [place] [phone] Teena Ly PA-C [address] [place] [address] 10/24/2024 3:45 PM EDT Office Visit Gynecology/Obstetic s [place] [address] [place] [address] [place] [address] Lisa Wyatt PA-C [address] [place] [address] 10/31/2024 12:45 PM EDT Office Visit Gynecology/Obstetic s [place] [address] [place] [phone] Teena Ly PA-C [address] [place] [phone] 11/05/2024 8:00 PM EDT Hospital Encounter [id number] [facility], Women's Lower Level 1st Floor [address] [place] [address] Enma Bloom, DO [address] [place], [place] [phone] 11/05/2024 8:00 PM EDT - 11/05/2024 9:20 PM EDT Surgery OBTR [facility], OB Triage, Women's Lower Level 1st Floor [address] [place] [address] Enma Bloom, DO [address] [place] [address] INDUCTION FOR VAGINAL DELIVERY Scheduled Orders Name Type Priority Associated Diagnoses Orde r Schedule MYCODE SUBSEQUENT ADULT Lab Routine [employer] Research Other*[id number] Every 6 Months for 2 Occurrences starting 10/15/2024 until 11/04/2025 Scheduled Procedures Name Priority Associated Diagnoses Date/Ti [...] as of this encounter Visit Diagnoses Diagnosis [employer] Research Other*[id number] 40 weeks gestation of state, incidental documented in this encounter Advance Directives * Full Code (Latest Code Status on File) Date Activated Date Inactivated Comments 10/26/2023 3:58 PM 10/26/2023 9:05 PM This order r eflects the patients wishes and were consensually agreed upon. Question Answer Comments Discussion of Advance Direct jessica occurred with: Not Discussed due to patient's condition
--- OUTSIDE RECORDS SUMMARY | 2024-10-26 03:39 | External Medical Summary | Summary of Care ---
Author Name Unknown Organization [facility] Address [address] [facility] [place] [address] Phone [phone] Care Team Providers Care Dowel Pin Man Name Role Phone Unavailable Primary Care Provider Unavailabl e Encounter Details Date Type Department Care Team (Late st Contact Info) Description 10/24/2024 Telephone Gynecology/Obstetrics [facility] [address] [place] [address] Valery Salazar PA-C [address] [place] [address] Allergies No known active allergiesdocumented as of this encounter (statuses as of 10/25/2024) Medications /Folic Acid+DHA 27-0.8-200 MG Oral Capsule [...] as of this encounter (statuses as of 10/25/2024) Active Problems Problem Noted Date Diagnosed Date Marginal insertion of umbili jaycob cord affecting management of mother 09/02/2024 Overview (09/16/2024): Declines growth ultrasound. Will continue to monitor fundal height. Supervision of other normal , antepartu m 04/24/2024 Overview (10/24/2024): Estimated Date of Delivery: 11/02/24 Blood type: O-, rhogam given on 08/13/2024. Rubella not immune/ NIPT: declines S/p anatomy ultrasound. S/p CBC - anemia on iron. Passed 1 hour glucose test. TDAP vaccine completed. Plans to breastfeed. Patient is going to check insurance about breast pump. contraception: fertility awareness. GBS negative. related nausea, antepartum 04/24/2024 Retained products of [...] as of this encounter (statuses as of 10/25/2024) Resolved Problems Problem Noted Date Diagnosed Date [...] information about breast pump. Note: Desires [place] delivery. Constipation during pregnanc y in third trimester 05/03/2022 09/28/2022 Overview (07/16/2022): Has Colace if needed. Nausea and vomiting in 05/03/2022 09/28/2022 Overview (05/03/2022): She reports improved with Zofran. She declines further management at this time. documented as of this encounter (statuses as of 10/25/2024) Immunizations Name Administration Dates Next Due Hepatitis [...] money to get more. 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 Per Val Mclaughlin yes patient needs to scheduled appointment in the office and see provider to schedule IOL. Scheduled for soonest appt next week. Lisa Silva to make patient aware. documented in this encounter Plan of Treatment Upcoming Encounters Date Type Department Care Team (Latest Contact Info) Description 10/31/2024 12:45 PM EDT Office Visit Gynecology/Obstetic s [place] [address] [place] [phone] Teena Ly PA-C [address] [place] [phone] 10/31/2024 1:30 PM EDT Office Visit Gynecology/Obstetri manuel Cu[place] [address] [place] [address] Valery Salazar PA-C [address] [place] [address] 11/05/2024 8:00 PM EDT Hospital Encounter [id number] [place] Women's [place] Level 1st Floor [address] [place] [address] Merle Enma George, [address] [place] [address] 11/05/2024 8:00 PM EDT - 11/05/2024 9:20 PM EDT Surgery [facility]TR [facility], OB Triage, Women's Lower Level 1st Floor [address] [place] [address] Merle Enma George, [address] [place] [address] INDUCTION FOR VAGINAL DELIVERY Scheduled Procedures Name Priority Associated Diagnoses Date/Ti me INDUCTION FOR VAGINAL DELIVERY 40 weeks gestation of 11/05/2024 8:00 PM EDT Health Maintenance Due Date Last Done Comments Depression Screening 2004 Hepatitis B Vaccine (1 of 3 - 19+ 3-dose series) 2011 Lipid Panel 2012 COVID-19 Vaccine (2023-2 5 season) 2024 Influenza Vaccine (FLU shot) (Season Ended) 2025 Pap Smear 09/14/2026 09/14/2023, 01/02/2021 Cervical Cancer [...] Not on filedocumented as of this encounter Advance Directives * Full Code (Latest Code Status on File) Date Activated Date Inactivated Comments 10/26/2023 3:58 PM 10/26/2023 9:05 PM This order r eflects the patients wishes and were consensually agreed upon. Question Answer Comments Discussion of Advance Direct jessica occurred with: Not Discussed due to patient's condition
--- OUTSIDE RECORDS SUMMARY | 2024-10-26 03:39 | External Medical Summary ---
Author Name Unknown Address Unknown Organization [id number]:[facility]ORY [facility] - [facility] [address] [place] [address] Laboratory Report Ordering Provider Test Date Status VANI LEHMAN 10/03/2024 09:34:28 Final Observation Date Value Abnormality Reference (Units ) Status Streptococcus agalactiae DNA [Presence] in Specimen by ANGELA with probe detection 10/03/2024 09:34:28 Negative Negative Final No Group B Streptococcus det ected by culture-enhanced PCR (amplified probe). GBS GBSCT - [facility] 10/03/2024 09:34:28 0.0 Final GBS SPCCT - [facility] 10/03/2024 09:34:28 31.2 Final Performing Location [facility] - [address] [place] [address]
--- OUTSIDE RECORDS SUMMARY | 2024-10-26 03:39 | External Medical Summary | Summary of Care ---
Author Name Unknown Organization [facility] Address [address] [facility] [place] [address] Phone [phone] Care Team Providers Care Lsat Instructor Name Role Phone Unavailable Primary Care Provider Unavailabl e Reason for Visit * Reason Comments Return Visit Encounter Details Date Type Department Care Team (Late st Contact Info) Description 10/03/2024 8:30 AM EDT Office Visit Gynecology/Obstetics [place] [address] [place] [phone] Teena Ly PA-C [address] [place] [address] Supervision of other normal , antepartum*; Rh negative, antepartum; Marginal insertion of umbilical cord affecting management of mother Allergies No known active allergiesdocumented as of this encounter (statuses as of 10/03/2024) Medications /Folic Acid+DHA 27-0.8-200 MG Oral Capsule [...] as of this encounter (statuses as of 10/03/2024) Active Problems Problem Noted Date Diagnosed Date [...] as of this encounter (statuses as of 10/03/2024) Resolved Problems Problem Noted Date Diagnosed Date [...] information about breast pump. Note: Desires [place] delivery. Constipation during pregnanc y in third trimester 05/03/2022 09/28/2022 Overview (07/16/2022): Has Colace if needed. Nausea and vomiting in 05/03/2022 09/28/2022 Overview (05/03/2022): She reports improved with Zofran. She declines further management at this time. documented as of this encounter (statuses as of 10/03/2024) Immunizations Name Administration Dates Next Due Hepatitis [...] money to get more. 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 BP 108/64 | Wt 82.8 kg (182 lb 8 oz) | LMP 01/27/2024 (Exact Date) | BMI 27.75 kg/m² | BSA 1.99 m² Doing well. Denies vaginal bleeding, leaking of fluid, vaginal pressure, contractions, abdominal pain, or abnormal vaginal discharge. Denies headaches, blurry vision, or right upper quadrant pain. Patient states she feels good movement. Physical Exam General: alert and oriented, no acute distress Pulmonary: normal respiratory effort, no accessory muscle use. Abdomen: gravid, soft, non-tender heart rate: 140sbpm Fundal height: 35cm Extremities: no edema bilaterally Pelvic: external genitalia and vagina anatomy within normal limits Bedside US: cephalic presentation ASSESSMENT/PLAN: 1. Supervision of other normal , antepartum - GBS collected today - Offered repeat CBC to check anemia, patient declines - Cephalic presentation as of 10/03/24 - discussed post dates induction, patient would like to consider dates and will let me know - GROUP B STREP CULTURE/PCR 2. Rh negative, antepartum - Rhogam given [...] documented in this encounter Nursing Notes * Soraida Cabrera CMA - 10/03/2024 8:35 AM EDT Routine OB check. Denies questions or complaints. documented in this encounter Plan of Treatment Upcoming Encounters Date Type Department Care Team (Late st Contact Info) Description 10/11/2024 1:15 PM EDT Office Visit Gynecology/Obstetics [place] [address] [place] [phone] Teena Ly PA-C [address] [place] [phone] 10/17/2024 1:15 PM EDT Office Visit Gynecology/Obstetics [place] [address] [place] [phone] Teena Ly PA-C [address] [place] [phone] 10/24/2024 3:45 PM EDT Office Visit Gynecology/Obstetics [place] [address] [place] [phone] Lisa Wyatt PA-C [address] [place] [address] Pending Results Name Type Priority Associated Diagnoses Date /Time GROUP B STREP CULTURE/PCR Lab Routine Supervision of other normal , antepartum 10/03/2024 9:34 AM EDT Health Maintenance Due Date Last Done Comments Hepatitis B Vaccine (1 of 3 - 19+ 3-dose series) 2011 Depression Screening 12/23/2021 12/23/2020 COVID-19 Vaccine (2023-2 [...] as of this encounter Visit Diagnoses Diagnosis Supervision of other normal , antepartum- Primary Rh negative, antepartum Rhesus isoimmunization affecting management of mother, antepartum condition Marginal insertion of umbilical cord affecting management of mother documented in this encounter Advance Directives * Full Code (Latest Code Status on File) Date Activated Date Inactivated Comments 10/26/2023 3:58 PM 10/26/2023 9:05 PM This order r eflects the patients wishes and were consensually agreed upon. Question Answer Comments Discussion of Advance Direct jessica occurred with: Not Discussed due to patient's condition"
--- OUTSIDE RECORDS SUMMARY | 2024-10-26 03:39 | External Medical Summary | Summary of Care ---
Author Name Unknown Organization [facility] Address [address] [facility] [place] [place] [address] Phone [phone] Care Team Providers Care Rehabilitation Worker Name Role Phone Unavailable Primary Care Provider Unavailabl e Reason for Visit * Reason Comments Return Visit Encounter Details Date Type Department Care Team (Late st Contact Info) Description 10/03/2024 8:30 AM EDT Office Visit Gynecology/Obstetics [place] [address] [place] [phone] Teena Ly PA-C [address] [place] [phone] Supervision of other normal , antepartum*; Rh [...] information about breast pump. Note: Desires [place] delivery. Constipation during pregnanc y in third [...] money to get more. 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
--- OUTSIDE RECORDS SUMMARY | 2024-10-26 03:39 | External Medical Summary | Summary of Care ---
Author Name Unknown Organization [facility] Address [address] [place] [address] Phone [phone] Care Team Providers Care Fuel Testing Technician Name Role Phone Kali Howard PA-C Primary Care Provider [phone] Reason for Visit * Reason Comments Return Visit Encounter Details Date Type Department Care Team (Late st Contact Info) Description 09/12/2024 2:00 PM EST Office Visit Gynecology/Obstetics [place] [address] [place] [address] Lisa Wyatt PA-C [address] [place] [address] Supervision of other normal , antepartum*; Rh negative, antepartum; Marginal insertion of umbilical cord affecting management of mother; Need for prophylactic vaccination with combined ghsnrzlkcv-bfsrako-fi rtussis (DTP) vaccine Allergies No known active allergiesdocumented as of this encounter (statuses as of 09/17/2024) Medications /Folic Acid+DHA 27-0.8-200 MG Oral Capsule Take by mouth . Active Acetaminophen 325 MG Oral Tablet (Tylenol) Take 3 Tablets by mouth every 8 hours as needed for Pain, Mild or Pain, Moderate. Alternate with Ibuprofen 30 Tablet Active Ondansetron 4 MG Oral Tablet Disintegrating (Zofran)Indication s: related nausea, antepartum Place 1 Tablet on tongue every 8 hours as needed for Nausea. dissolve on tongue. 45 Tablet 1 4 Active B-6 100 MG Oral Tablet Take by mouth. Active Ferrous Sulfate 325 (65 Fe) MG Oral Tablet (Feosol)Indication s:Antepartum anemia complicating Take 1 Tablet by mouth in the morning. 30 Tablet 12 5 Active documented as of this encounter (statuses as of 09/17/2024) Active Problems Problem Noted Date Diagnosed Date [...] as of this encounter (statuses as of 09/17/2024) Resolved Problems Problem Noted Date Diagnosed Date [...] information about breast pump. Note: Desires [place] delivery. Constipation during pregnanc y in third trimester 05/03/2022 09/28/2022 Overview (07/16/2022): Has Colace if needed. Nausea and vomiting in 05/03/2022 09/28/2022 Overview (05/03/2022): She reports improved with Zofran. She declines further management at this time. documented as of this encounter (statuses as of 09/17/2024) Immunizations Name Administration Dates Next Due Hepatitis [...] money to get more. Never true 06/12/2024 [place] Depression Scale Answer Date Recorded [place] Depression Scale Total 3 04/24/2024 The thought of harming myself has occurred to me . 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 BP 110/64 | Wt 80 kg (176 lb 6.4 oz) | LMP 01/27/2024 (Exact Date) | BMI 26.82 kg/m² | BSA 1.96 m² Doing well. Denies vaginal bleeding, leaking of fluid, vaginal pressure, contractions, abdominal pain, or abnormal vaginal discharge. Denies headaches, blurry vision, or right upper quadrant pain. Patient states she feels good movement. Patient reports that cold resolved, but has a lingering cough. Patient is taking iron and taking Colace. 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 Patient reports uncomfortable at times, but managing. Physical Exam General: alert and oriented, no acute distress Pulmonary: normal respiratory effort, no accessory muscle use. Abdomen: gravid, soft, non-tender heart rate: 130's bpm Fundal height: 32 cm OB [place] Problems (from 04/12/24 to present) Problem Noted Diagnosed Resolved Marginal insertion of umbilical cord affecting management of mother 09/02/2024 by Lisa Wyatt PA-C No Declines growth ultrasound. Will continue to monitor fundal height. Supervision of other normal , antepartum 04/24/2024 by Lisa Wyatt PA-C No Estimated Date of Delivery: 11/02/24 Blood type: O-, rhogam given on 08/13/2024. Rubella not immune/ NIPT: declines S/p anatomy ultrasound. S/p CBC - anemia on iron. Passed 1 hour glucose test. TDAP vaccine completed. Plans to breastfeed. Patient is going to check insurance about breast pump. contraception: fertility awareness. GBS at 36 weeks Rh negative, antepartum 09/15/2023 by Lisa Wyatt PA-C No Rhogam given on 08/13/2024. Plan: -Patient declines ultrasound at this time. Patient would like to continue to measure fundal height and go from there. -Rhogam given. Tdap completed today. -Taking iron for anemia. -Desires to breastfeed. -Patient is continuing to wear compression stockings. Counseled patient to call triage/go to labor and delivery if she has any vaginal bleeding, leaking of fluid, vaginal pressure, 6 or more painful contractions in an hour, abdominal pain, decreased movements, headaches, blurry vision, or right upper quadrant pain. Patient verbalized understanding. RTO in 2 weeks for return appointment or sooner if any concerns. Lisa Eaton PA-C documented in this encounter Nursing Notes * Roxane Mcdonald RN - 09/12/2024 2:31 PM EST Pre-Administration Time Out Procedure Performed: Yes Patient Identified (Ask Name/Date of ): Yes Does the patient have a fever greater than 101 degrees today? No Patient allergic to latex? No Has the patient ever fainted after receiving an injection? No VFC Stock: No Immunization(s) verified: Yes, Immunization Name: Tdap (Adacel), VIS Sheet(s) given: No Verified Side and Site: Yes Verified Shot(s) with Parent(s)/Patient: Yes * Jessa Owens LPN - 09/12/2024 2:01 PM EST Routine OB check. Denies questions or complaints. documented in this encounter Plan of Treatment Upcoming Encounters Date Type Department Care Team (Late st Contact Info) Description 09/26/2024 12:45 PM EDT Office Visit Gynecology/Obstetics [place] [address] [place] [address] Teena Ly PA-C [address] [place] [address] 10/03/2024 8:30 AM EDT Office [facility] [place] [facility] [phone] Teena Ly PA-C [address] [place] [address] 10/11/2024 1:15 PM EDT Office Visit Gynecology/Obstetics [place] [address] [place] [address] Teena Ly PA-C [address] [place] [address] 10/17/2024 1:15 PM EDT Office Visit Gynecology/Obstetics [place] [address] [place] [phone] Teena Ly PA-C [address] [place] [address] 10/24/2024 3:45 PM EDT Office Visit Gynecology/Obstetics [place] [address] [place] [address] Lisa Wyatt PA-C [address] [place] [address] Health Maintenance Due Date Last Done Comments [...] of umbilical cord affecting management of mother Need for prophylactic vaccination with combined xifihoaone-gecyjip-jbtnkxqfg (DTP) vaccine documented in this encounter Advance Directives * Full Code (Latest Code Status on File) Date Activated Date Inactivated Comments 10/26/2023 3:58 PM 10/26/2023 9:05 PM This order r eflects the patients wishes and were consensually agreed upon. Question Answer Comments Discussion of Advance Direct jessica occurred with: Not Discussed due to patient's condition Care Teams Fuel Testing Technician Relationship Specialty Start Date End Date Kali Howard PA-C PCP - General Physician Lozenge Dough Mixer 01/11/23 documented as of this encounter"
--- OUTSIDE RECORDS SUMMARY | 2024-10-26 03:39 | External Medical Summary | Summary of Care ---
Author Name Unknown Organization [facility] Address [address] [facility] [place] [address] Phone [phone] Care Team Providers Care Electrical Software Engineer Name Role Phone Unavailable Primary Care Provider Unavailabl e Reason for Visit * Reason Comments Return Visit Encounter Details Date Type Department Care Team (Late st Contact Info) Description 10/11/2024 1:15 PM EDT Office Visit Gynecology/Obstetics [place] [address] [place] [phone] Teena Ly PA-C [address] [place] [phone] Rh negative, antepartum*; Supervision of other normal [...] information about breast pump. Note: Desires [place] delivery. Constipation during pregnanc y in third [...] money to get more. 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 [...] 1:15 PM EDT Office Visit Gynecology/Obstetic s [place] [address] [place] [address] Teena Ly PA-C [address] [facility] [place] [address] 10/24/2024 3:45 PM EDT Office Visit Gynecology/Obstetic s [place] [address] [place] [address] Lisa Wyatt PA-C [address] [place] [address] 10/31/2024 12:45 PM EDT Office Visit Gynecology/Obstetic s [place] [address] [place] [address] Teena Ly PA-C [address] [place] [address] 11/05/2024 8:00 PM EDT Hospital Encounter [id number], Women's Lower Level 1st Floor [address] [place] [address] [facility] [address] [place] [address] 11/05/2024 8:00 PM EDT - 11/05/2024 9:20 PM EDT Surgery OBTR [facility], OB Triage, Women's Lower Level 1st Floor [address] [place] [address] [facility] [address] [place] [address] INDUCTION FOR VAGINAL DELIVERY Scheduled Procedures Name [...]
--- OUTSIDE RECORDS SUMMARY | 2024-10-26 03:39 | External Medical Summary | Summary of Care ---
Author Name Unknown Organization [facility] Address [address] [place] [address] Phone [phone] Care Team Providers Care Accreditation Specialist Name Role Phone Kali Howard PA-C Primary Care Provider [phone] Reason for Visit * Reason Comments Return Visit Encounter Details Date Type Department Care Team (Late st Contact Info) Description 09/12/2024 2:00 PM EST Office Visit Gynecology/Obstetics [place] [address] [place] [address] Lisa Wyatt PA-C [address] [place] [address] Supervision of other normal , antepartum*; Rh negative, antepartum; Marginal insertion of umbilical cord affecting management of mother; Need for prophylactic vaccination with combined uvgndhaiap-nwgkhen-lt rtussis (DTP) vaccine Allergies No known active allergiesdocumented as of this encounter (statuses as of 09/16/2024) Medications /Folic Acid+DHA 27-0.8-200 MG Oral Capsule [...] as of this encounter (statuses as of 09/16/2024) Active Problems Problem Noted Date Diagnosed Date [...] as of this encounter (statuses as of 09/16/2024) Resolved Problems Problem Noted Date Diagnosed Date [...] information about breast pump. Note: Desires [place] delivery. Constipation during pregnanc y in third trimester 05/03/2022 09/28/2022 Overview (07/16/2022): Has Colace if needed. Nausea and vomiting in 05/03/2022 09/28/2022 Overview (05/03/2022): She reports improved with Zofran. She declines further management at this time. documented as of this encounter (statuses as of 09/16/2024) Immunizations Name Administration Dates Next Due Hepatitis [...] money to get more. 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 -Desires to breastfeed. Counseled patient to call triage/go to labor [...] in this encounter Nursing Notes * Roxane Mcdonald, RN - 09/12/2024 2:31 PM EST Pre-Administration [...] 09/26/2024 12:45 PM EDT Office Visit Gynecology/Obstetics [place] [address] [facility] [place] [address] Teena Ly PA-C [address] [place] [address] 10/03/2024 8:30 AM EDT Office Visit Gynecology/Obstetics [place] [address] [facility] [place] [address] Teena Ly PA-C [address] [place] [address] 10/11/2024 1:15 PM EDT Office Visit Gynecology/Obstetics [place] [address] [place] [address] Teena Ly PA-C [address] [place] [address] 10/17/2024 1:15 PM EDT Office Visit Gynecology/Obstetics [place] [address] [place] [address] Teena Ly PA-C [address] [place] [address] 10/24/2024 3:45 PM EDT Office Visit Gynecology/Obstetics [place] [address] [place] [phone] Lisa Wyatt PA-C [address] [place] [address] Health Maintenance Due Date Last Done Comments [...] mother Need for prophylactic vaccination with combined vrafiqvhgx-jzefhjc-krhxduwzg (DTP) vaccine documented in this encounter Advance Directives * Full Code (Latest Code Status on File) Date Activated Date Inactivated Comments 10/26/2023 3:58 PM 10/26/2023 9:05 PM This order r eflects the patients wishes and were consensually agreed upon. Question Answer Comments Discussion of Advance Direct jessica occurred with: Not Discussed due to patient's condition Care Teams Accreditation Specialist Relationship Specialty Start Date End Date Kali Howard PA-C PCP - General Physician Copying Machine Repairer 01/11/23 documented as of this encounter"
--- OUTSIDE RECORDS SUMMARY | 2024-10-26 03:39 | External Medical Summary | Summary of Care ---
Author Name Unknown Organization [facility] Address [address] [facility] [address] Phone [phone] Care Team Providers Care Farm Management Adviser Name Role Phone Unavailable Primary Care Provider Unavailabl e Reason for Visit * Reason Comments Return Visit Encounter Details Date Type Department Care Team (Late st Contact Info) Description 10/17/2024 1:15 PM EDT Office Visit Gynecology/Obstetics [place] [address] [place] [address] Teena Ly PA-C [address] [place] [phone] Rh negative, antepartum*; Supervision of other normal , antepartum; Marginal insertion of umbilical cord affecting management of mother Allergies No known active allergiesdocumented as of this encounter (statuses as of 10/17/2024) Medications /Folic Acid+DHA 27-0.8-200 MG Oral Capsule [...] as of this encounter (statuses as of 10/17/2024) Active Problems Problem Noted Date Diagnosed Date [...] as of this encounter (statuses as of 10/17/2024) Resolved Problems Problem Noted Date Diagnosed Date [...] information about breast pump. Note: Desires [place] delivery. Constipation during pregnanc y in third trimester 05/03/2022 09/28/2022 Overview (07/16/2022): Has Colace if needed. Nausea and vomiting in 05/03/2022 09/28/2022 Overview (05/03/2022): She reports improved with Zofran. She declines further management at this time. documented as of this encounter (statuses as of 10/17/2024) Immunizations Name Administration Dates Next Due Hepatitis [...] money to get more. 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 BP 106/64 | Wt 82.9 kg (182 lb 12.8 oz) | LMP 01/27/2024 (Exact Date) | BMI 27.79 kg/m² | BSA 1.99m² Doing well. Denies vaginal bleeding, leaking of fluid, vaginal pressure, contractions, abdominal pain, or abnormal vaginal discharge. Denies headaches, blurry vision, or right upper quadrant pain. Patient states she feels good movement. Patient declines cervical check today Physical Exam General: alert and oriented, no acute distress Pulmonary: normal respiratory effort, no accessory muscle use. Abdomen: gravid, soft, non-tender heart rate: 130 bpms Fundal height: 38 cm Extremities: no edema bilaterally ASSESSMENT/PLAN: 1. Supervision of other normal , antepartum - GBS neg - Cephalic presentation as of 10/03/24 - IOL scheduled 11/05 2. Rh negative, antepartum - Rhogam given [...] Nursing Notes * Soraida Cabrera CMA - 10/17/2024 1:16 PM EDT Routine OB check. Denies questions or complaints. documented in this encounter Plan of Treatment Upcoming Encounters Date Type Department Care Team (Latest Contact Info) Description 10/24/2024 3:45 PM EDT Office Visit Gynecology/Obstetic s [place] [address] [facility] [place] [phone] Lisa Wyatt PA-C [address] [place] [address] 10/31/2024 12:45 PM EDT Office Visit Gynecology/Obstetic s [place] 68 [facility] [place] [address] Teena Ly PA-C 68 [facility] [place] [address] 11/05/2024 8:00 PM EDT Hospital En[place] [id number] 1st Floor [address] [facility] [place] [address] Enma Bloom DO [address] [place] [address] 11/05/2024 8:00 PM EDT - 11/05/2024 9:20 PM EDT Surgery OBTR [facility], OB Triage, Women's Lower Level 1st Floor [address] [place] [address] Drginna, Enma George, DO [address] [place] [address] INDUCTION FOR VAGINAL DELIVERY Scheduled Procedures Name [...]
--- OUTSIDE RECORDS SUMMARY | 2024-10-26 03:39 | External Medical Summary | Summary of Care ---
Author Name Unknown Organization [facility] Address [address] [place] [address] Phone [phone] Care Team Providers Care Online Communications Manager Name Role Phone Kali Howard PA-C Primary Care Provider [phone] [phone] Reason for Visit * Reason Comments Return Visit Encounter Details Date Type Department Care Team (Late st Contact Info) Description 09/26/2024 12:45 PM EDT Office Visit Gynecology/Obstetics [place] [address] [place] [phone] Teena Ly PA-C [address] [place] [address] Supervision of other normal , antepartum*; Rh negative, antepartum; Marginal insertion of umbilical cord affecting management of mother; Antepartum anemia complicating Allergies No known active allergiesdocumented as of this encounter (statuses as of 09/26/2024) Medications /Folic Acid+DHA 27-0.8-200 MG Oral Capsule Take by mouth . Active Acetaminophen 325 MG Oral Tablet (Tylenol) Take 3 Tablets by mouth every 8 hours as needed for Pain, Mild or Pain, Moderate. Alternate with Ibuprofen 30 Tablet 10/26/19 24 Active Ondansetron 4 MG Oral Tablet Disintegrating (Zofran)Indication s: related nausea, antepartum Place 1 Tablet on tongue every 8 hours as needed for Nausea. dissolve on tongue. 45 Tablet 1 04/24/20 24 Active B-6 100 MG Oral Tablet Take by mouth. Active Famotidine 20 MG Oral Tablet (Pepcid) Take 1 Tablet by mouth at bedtime as needed for Heartburn. 30 Tablet 2 09/20/19 25 Active Ferrous Sulfate 325 (65 Fe) MG Oral Tablet (Feosol)Indication s:Antepartum anemia complicating Take 1 Tablet by mouth in the morning. 90 Tablet 2 09/27/19 25 Active Ferrous Sulfate 325 (65 Fe) MG Oral Tablet (Feosol)Indication s:Antepartum anemia complicating Take 1 Tablet by mouth in the morning. 30 Tablet 12 08/14/19 25 025 Discontin ued(Refil l) documented as of this encounter (statuses as of 09/26/2024) Active Problems Problem Noted Date Diagnosed Date [...] ankle area. Patient asymptomatic. Antepartum anemia complicating 02/07/2 023 Overview (09/16/2024): Ferritin 16. Taking iron. Rh negative status during in third tri mester 06/14/2022 Overview (08/24/2022): Rhogam given on 08/24/2022 at 28 weeks, 1 day. Sebaceous cyst 12/25/2020 Estimated Date of Delivery Comme nts Yes 11/02/2024 Based on last me nstrual period of 01/27/2024 (Exact Date) documented as of this encounter (statuses as of 09/26/2024) Resolved Problems Problem Noted Date Diagnosed Date [...] information about breast pump. Note: Desires [place] delivery. Constipation during pregnanc y in third trimester 05/03/2022 09/28/2022 Overview (07/16/2022): Has Colace if needed. Nausea and vomiting in 05/03/2022 09/28/2022 Overview (05/03/2022): She reports improved with Zofran. She declines further management at this time. documented as of this encounter (statuses as of 09/26/2024) Immunizations Name Administration Dates Next Due Hepatitis [...] money to get more. 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 BP 100/68 | Wt 81.2 kg (179 lb) | LMP 01/27/2024 (Exact Date) | BMI 27.22 kg/m² | BSA 1.97 m² Doing well. Denies vaginal bleeding, leaking of fluid, vaginal pressure, contractions, abdominal pain, or abnormal vaginal discharge. Denies headaches, blurry vision, or right upper quadrant pain. Patient states she feels good movement. Physical Exam General: alert and oriented, no acute distress Pulmonary: normal respiratory effort, no accessory muscle use. Abdomen: gravid, soft, non-tender heart rate: 140 bpm Fundal height: 35cm Extremities: no edema bilaterally ASSESSMENT/PLAN: 1. Supervision of other normal , antepartum - doing well, no concerns - Advised GBS culture next appt 2. Rh negative, antepartum Rhogam 08/13/24 3. Marginal insertion of umbilical cord affecting management of mother - declines 3rd trimester growth US 4. Antepartum anemia complicating - Ferrous Sulfate 325 (65 Fe) MG Oral Tablet (Feosol); Take 1 Tablet by mouth in the morning. Dispense: 90 Tablet; Refill: 2 Counseled patient to call triage/go to labor [...] documented in this encounter Nursing Notes * Laura Warren RN - 09/26/2024 12:53 PM EDT Routine OB check. Denies questions or complaints. documented in this encounter Plan of Treatment Upcoming Encounters Date Type Department Care Team (Late st Contact Info) Description 10/03/2024 8:30 AM EDT [facility] [place] [facility] [phone] Teena Ly PA-C 68 [facility] [place] [phone] 10/11/2024 1:15 PM EDT Office Visit Gynecology/Obstetics [place] [address] [facility] [place] [phone] Teena Ly PA-C 68 [place] [phone] 10/17/2024 1:15 PM EDT Office Visit Gynecology/Obstetics [place] [address] [place] [phone] Teena Ly PA-C 68 [place] [phone] 10/24/2024 3:45 PM EDT Office Visit Gynecology/Obstetics [place] [address] [place] [phone] Lisa Wyatt PA-C [address] [place] [address] Health Maintenance Due Date Last Done Comments Hepatitis B Vaccine (1 of 3 - 19+ 3-dose series) 2011 Depression Screening 12/23/2021 12/23/2020 COVID-19 Vaccine ( - 2023-2 5 season) 2024 Influenza Vaccine (FLU shot) [...] of umbilical cord affecting management of mother Antepartum anemia complicating Anemia, antepartum documented in this encounter Advance Directives * Full Code (Latest Code Status on File) Date Activated Date Inactivated Comments 10/26/2023 3:58 PM 10/26/2023 9:05 PM This order r eflects the patients wishes and were consensually agreed upon. Question Answer Comments Discussion of Advance Direct [email or web address] occurred with: Not Discussed due to patient's condition Care Teams Online Communications Manager Relationship Specialty Start Date End Date Kali Howard PA-C PCP - General Physician [facility] 01/11/23 documented as of this encounter"
--- OUTSIDE RECORDS SUMMARY | 2024-10-26 03:40 | External Medical Summary | Summary of Care ---
Author Name Unknown Organization [facility] Address [address] [place] [address] Phone [phone] Care Team Providers Care Feather Boner Name Role Phone Kali Howard PA-C Primary Care Provider [phone] Reason for Visit * Reason Onset Date Comments Order Request 08/13/2024 Encounter Details Date Type Department Care Team ([facility] st Contact Info) Description 08/13/2024 Telephone Gynecology/Obstetics [place] [address] [place] [phone] Teena Ly PA-C [address] [place] [phone] Order Request Allergies No known active allergiesdocumented as of this encounter (statuses as of 08/13/2024) Medications /Folic Acid+DHA 27-0.8-200 MG Oral Capsule [...] MG Oral Tablet Take by mouth. Active Hospital, Clinic, or Other Facility Administered Medication Ordered Dose Route Frequency Start Date End Date Status Rho D Immune Globulin (Rhophylac) inj 300 mcgIndications:Rh negative, antepartum 300 mcg IM ONCE 08/13/2024 08/14/2024 Active documented as of this encounter (statuses as of 08/13/2024) Active Problems Problem Noted Date Diagnosed Date Supervision of other normal , [facility] 04/24/2024 Overview (05/23/2024): Estimated Date of Delivery: 11/02/24 Blood type: O-, rhogam at 28 weeks Rubella not immune/ NIPT: declines Anatomy scan: at 20 weeks Third trimester labs: at 28 weeks TDAP: at 28 weeks Plans to * feed contraception: * GBS at 36 weeks related nausea, antepartum 04/24/2024 Retained products of conception after miscarriag e 10/26/2023 Missed 10/26/2023 Rh negative, antepartum 09/15/2023 Overview (05/23/2024): Rhogam at 28 weeks and with any vaginal bleeding Varicose veins during 09/14/2022 Overview (09/14/2022): Varicose veins in right ankle area. Patient asymptomatic. Antepartum anemia complicating 023 Overview (10/19/2022): Hemoglobin 11.9. Vitamin B12 low. Taking vitamin B12 daily. Ferritin 17. Rh negative status during in [facility] 06/14/2022 Overview (08/24/2022): Rhogam given on 08/24/2022 at 28 weeks, 1 day. Supervision of normal first , [facility] 05/03/2022 Overview (11/02/2022): MARY KATE 11/15/2022 Rub/Varc immune [...] information about breast pump. Note: Desires [place] delivery. Sebaceous cyst 12/25/2020 Estimated Date of Delivery Comme nts Yes 11/02/2024 Based on last me nstrual period of 01/27/2024 (Exact Date) documented as of this encounter (statuses as of 08/13/2024) Resolved Problems Problem Noted Date Diagnosed Date Resolved Date Constipation during pregnanc y in third trimester 05/03/2022 09/28/2022 Overview (07/16/2022): Has Colace if needed. Nausea and vomiting in 05/03/2022 09/28/2022 Overview (05/03/2022): She reports improved with Zofran. She declines further management at this time. documented as of this encounter (statuses as of 08/13/2024) Immunizations Name Administration Dates Next Due Hepatitis A, Ped/Adol., 18 year and below, 2-Dos e 03/14/2013 IPV - Polio Virus Vaccine (Inact) 03/05/2013 TDAP (age 10 and older)(Boostrix) 08/24/2022 Yellow Fever Vaccine, Live (YF-Vax) 03/05/2013 documented [...] money to get more. Never true 06/12/2024 [place] Depression Scale Answer Date Recorded [place] Depression Scale Total 3 04/24/2024 The thought [...] 06/12/2024 Transportation Needs Answer Date Record ed READ ONLY Do you have troubl e getting a ride to medical visits or work? Never True 06/12/2024 Does your family have a hard [...] place to sleep at night? No 06/12/2024 READ ONLY Do you think you a re at risk of becoming homeless? 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 Thank you! documented in this encounter Plan of Treatment Upcoming Encounters Date Type Department Care Team (Late st Contact Info) Description 08/28/2024 3:45 PM EST Office Visit Gynecology/Obstetics [place] [address] [place] [phone] Lisa Wyatt PA-C [address] [place] [address] 09/12/2024 2:00 PM EST Office Visit Gynecology/Obstetics [place] [address] [facility] [place] [phone] Lisa Wyatt PA-C [address] [place], [place] [phone] Health Maintenance Due Date Last Done Comments Hepatitis B Vaccine (1 of 3 - 19+ 3-dose series) 2011 Depression Screening 12/23/2021 12/23/2020 COVID-19 Vaccine (2023-2 5 season) 2024 Influenza Vaccine (FLU shot) (#1) 2024 Pap Smear 09/14/2026 09/14/2023, 01/02/2021 Cervical Cancer Screening 09/14/2028 HPV/Co-Test 09/14/2028 09/14/2023 DTap/Tdap Vaccines (2 - Td o r Tdap) 08/24/2032 08/24/2022 HPV (Gardasil) Vaccine Aged Out No [...] Discussed due to patient's condition Care Teams Feather Boner Relationship Specialty Start Date End Date Kali Howard PA-C [address] [place] [address] [place] [id number] PCP - General Physician [facility] 01/11/23 documented as of this encounter
--- OUTSIDE RECORDS SUMMARY | 2024-10-26 03:40 | External Medical Summary ---
Author Name Unknown Address Unknown Organization [id number]:[facility] - [address] [place] [address] Laboratory Report Ordering Provider Test Date Status VANI LEHMAN 08/13/2024 15:07:47 Final Observation Date Value Abnormality Reference (Units ) Status TSH 08/13/2024 15:07:47 1.10 0.27-4.20 (uIU/mL) Final Performing Location [facility] - [address] [place] [address]
--- OUTSIDE RECORDS SUMMARY | 2024-10-26 03:40 | External Medical Summary ---
Author Name Unknown Address Unknown Organization [id number]:[facility] - [address] [place] [address] Laboratory Report Ordering Provider Test Date Status VANI LEHMAN 08/13/2024 15:07:47 Final Observation Date Value Abnormality Reference (Units ) Status Treponema pallidum Ab [Presence] in Serum by Immunoassay 08/13/2024 15:07:47 Nonreactive Nonreactive Final No serologic evidence of syp hilis. No additional testing clinicially indicated at this time. Consider repeat testing in 2-4 weeks if acute or primary syphilis is suspected. Performing Location [facility] - [address] [place] [address]
--- OUTSIDE RECORDS SUMMARY | 2024-10-26 03:40 | External Medical Summary | Summary of Care ---
Author Name Unknown Organization [facility] Address [address] [place] [address] Phone [phone] Care Team Providers Care Compensation And Benefits Manager Name Role Phone Kali Howard PA-C Primary Care Provider [phone] [phone] Reason for Visit * Reason Comments Return Visit Encounter Details Date Type Department Care Team (Late st Contact Info) Description 06/25/2024 2:15 PM EST Office Visit Gynecology/Obstetics [place] [address] [place] [phone] Teena Ly PA-C [address] [place] [phone] Rh negative, antepartum*; Supervision of other normal , antepartum; Varicose veins during Allergies No known active allergiesdocumented as of this encounter (statuses as of 06/25/2024) Medications /Folic Acid+DHA 27-0.8-200 MG Oral Capsule [...] on tongue. 45 Tablet 1 4 Active documented as of this encounter (statuses as of 06/25/2024) Active Problems Problem Noted Date Diagnosed Date Supervision of other normal , [place] 04/24/2024 Overview (05/23/2024): Estimated Date of Delivery: [...] Ferritin 17. [facility] Overview (08/24/2022): Rhogam given on 08/24/2022 at 28 weeks, 1 day. Supervision of normal first , [facility] 05/03/2022 Overview (11/02/2022): MARY KATE 11/15/2022 Rub/Varc [...] as of this encounter (statuses as of 06/25/2024) Resolved Problems Problem Noted Date Diagnosed Date Resolved Date Constipation during pregnanc y in third trimester 05/03/2022 09/28/2022 Overview (07/16/2022): Has Colace if needed. Nausea and vomiting in 05/03/2022 09/28/2022 Overview (05/03/2022): She reports improved with Zofran. She declines further management at this time. documented as of this encounter (statuses as of 06/25/2024) Immunizations Name Administration Dates Next Due Hepatitis [...] money to get more. Never true 06/12/2024 [place] Depression Scale Answer Date Recorded [place] Depression Scale Total 3 04/24/2024 The thought [...] No 06/12/2024 Does the household have a [facility] hospitall[facility] source of income? 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 BP 94/58 | Wt 77.6 kg (171 lb 1.6 oz) | LMP 01/27/2024 (Exact Date) | BMI 26.02 kg/m² | BSA 1.93 m² Doing well. Denies vaginal bleeding, leaking of fluid, vaginal pressure, contractions, abdominal pain, or abnormal vaginal discharge. Denies headaches, blurry vision, or right upper quadrant pain. Patient states she feels good movement. Patient reports varicose veins in her left thigh as well as in her vulva. It is tender. She denies lower leg swelling or calf pain, chest pain or SOB. She denies history of blood clots. Physical Exam General: alert and oriented, no acute distress Pulmonary: normal respiratory effort, no accessory muscle use. Abdomen: gravid, soft, non-tender heart rate: 140s bpm Fundal height: 20cm Extremities: no edema bilaterally. Left varicose veins medial lower leg and thigh as well as vulvarregion. None of the right. No erythema, warmth. No lower leg swelling or calf tenderness. ASSESSMENT/PLAN: 1. Rh negative, antepartum - Rhogam @ 28weeks 2. Supervision of other normal , antepartum - Follow up anatomy scan 07/04/24 - [facility] recommendations reviewed with patient for marginal cord insertion. Advise follow up growth scans as indicated - varicose veins -- physical exam consistent with superficial varicose veins. No signs of phlebitis. No evidence of DVT. Advised to monitor for leg swelling, calf pain, chest pain, SOB and to let us know or go to Emergency room immediately if such symptoms present. Patient verbalized understanding.Advised compression stockings of 20-30mmHg, elevating legs above level of heart, hydration. Can usetylenol, cool or warm compress for any discomfort. Counseled patient to call triage/go to labor and delivery if she has any vaginal bleeding, leaking of fluid, vaginal pressure, four or more painful contractions in an hour, abdominal pain, decreased movements, headaches, blurry vision, or right upper quadrant pain. Patient verbalized understanding. RTO in 4 weeks for a return appointment or sooner if any concerns. Teena Ly PA-C documented in this encounter Nursing Notes * Laura Warren RN - 06/25/2024 2:23 PM EST Pt presents for BRI. Reports tender varicose veins in her left thigh and groin area. documented in this encounter Plan of Treatment Upcoming Encounters Date Type Department Care Team (Late st Contact Info) Description 07/04/2024 2:45 PM EST Imaging Radiology, [place] [address] [place] [address] 07/30/2024 2:15 PM EST Office Visit Gynecology/Obstetics [address] [phone] Teena Ly PA-C [address] [place] [phone] 08/28/2024 3:45 PM EST Office Visit Gynecology/Obstetics [place] [address] [place] [address] Lisa Wyatt PA-C [address] [place] [address] Health Maintenance Due Date Last Done Comments [...] 5 Years) and At-Risk Patients (6 to 64 Years) Aged Out No longer eligible b ased on patient's age to complete this topic documented as of this encounter Medical Devices Not on filedocumented as of this encounter Visit Diagnoses Diagnosis Rh negative, antepartum- Primary Rhesus isoimmunization affecting management of mother, antepartum condition Supervision of other normal , antepartum Varicose veins during documented in this encounter Advance Directives * Full Code (Latest Code Status on File) Date Activated Date Inactivated Comments 10/26/2023 3:58 PM 10/26/2023 9:05 PM This order r eflects the patients wishes and were consensually agreed upon. Question Answer Comments Discussion of Advance Direct [email or web address] occurred with: Not Discussed due to patient's condition Care Teams Compensation And Benefits Manager Relationship Specialty Start Date End Date Kali Howard PA-C [address] [place] [phone] PCP - General Physician Technology Lead 01/11/23 documented as of this encounter"
--- OUTSIDE RECORDS SUMMARY | 2024-10-26 03:40 | External Medical Summary ---
Author Name Unknown Address Unknown Organization [id number]:[facility] - [address] [place] [address] Laboratory Report Ordering Provider Test Date Status VANI LEHMAN 08/13/2024 15:07:47 Final Observation Date Value Abnormality Reference (Units ) Status ABO 08/13/2024 15:07:47 O Final RH 08/13/2024 15:07:47 Negative Final RED BLOOD CELL ANTIBODY SCREEN 08/13/2024 15:07:47 Negative Final SPECIMEN EXPIRATION DATE 08/13/2024 15:07:47 08/16/2024 23:59 Final Performing Location [facility] - [address] [place] [address]
--- OUTSIDE RECORDS SUMMARY | 2024-10-26 03:40 | External Medical Summary | Summary of Care ---
Author Name Unknown Organization [facility] Address [address] [place] [address] Phone [phone] Care Team Providers Care Measurement Superintendent Name Role Phone Kali Howard PA-C Primary Care Provider [phone] [phone] Reason for Visit * Reason Comments Return Visit Encounter Details Date Type Department Care Team (Late st Contact Info) Description 07/30/2024 2:15 PM EST Office Visit Gynecology/Obstetics [place] [address] [place] [phone] Teena Ly PA-C [address] [place] [phone] Supervision of other normal , antepartum*; Rh negative, antepartum; Marginal insertion of umbilical cord affecting management of mother Allergies No known active allergiesdocumented as of this encounter (statuses as of 07/30/2024) Medications /Folic Acid+DHA 27-0.8-200 MG Oral Capsule [...] Nausea. dissolve on tongue. 45 Tablet 1 10/08/202 4 Active documented as of this encounter (statuses as of 07/30/2024) Active Problems Problem Noted Date Diagnosed Date Supervision of other normal , armida oconnor 04/24/2024 Overview (05/23/2024): Estimated Date of Delivery: [...] 17. Rh negative status during in third [facility] 06/14/2022 Overview (08/24/2022): Rhogam given on 08/24/2022 at 28 weeks, 1 day. Supervision of normal first , armida 05/03/2022 Overview (11/02/2022): MARY KATE 11/15/2022 Rub/Varc [...] information about breast pump. Note: Desires [place] delivery. Sebaceous cyst 12/25/2020 Estimated Date of Delivery Comme nts Yes 11/02/2024 Based on last me nstrual period of 01/27/2024 (Exact Date) documented as of this encounter (statuses as of 07/30/2024) Resolved Problems Problem Noted Date Diagnosed Date Resolved Date Constipation during pregnanc y in third trimester 05/03/2022 09/28/2022 Overview (07/16/2022): Has Colace if needed. Nausea and vomiting in 05/03/2022 09/28/2022 Overview (05/03/2022): She reports improved with Zofran. She declines further management at this time. documented as of this encounter (statuses as of 07/30/2024) Immunizations Name Administration Dates Next Due Hepatitis [...] money to get more. Never true 06/12/2024 [place] Depression Scale Answer Date Recorded [place] Depression Scale Total 3 04/24/2024 The thought [...] 06/12/2024 Does the household have a re lar source of income? 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 BP 102/60 | Wt 79.4 kg (175 lb) | LMP 01/27/2024 (Exact Date) | BMI 26.61 kg/m² | BSA 1.95 m² Doing well. Denies vaginal bleeding, leaking of fluid, vaginal pressure, contractions, abdominal pain, or abnormal vaginal discharge. Denies headaches, blurry vision, or right upper quadrant pain. Patient states she feels good movement. Patient is wearing compression stockings for varicose veins which seems to help some. She denies worsening symptoms. Physical Exam General: alert and oriented, no acute distress Pulmonary: normal respiratory effort, no accessory muscle use. Abdomen: gravid, soft, non-tender heart rate: 140s bpm Fundal height: 27cm Extremities: no edema bilaterally ASSESSMENT/PLAN: 1. Supervision of other normal , antepartum - s/p anatomy scan - advised 28 week labs. Orders placed - continue compression stockings for varicose veins - 50-G GESTATIONAL GLUCOSE, 1 HOUR; Future - CBC WITH WBC DIFFERENTIAL AND ANEMIA REFLEX WORKUP; Future - SYPHILIS ANTIBODY SCREEN WITH REFLEX TO RPR; Future - TYPE AND SCREEN; Future 2. Rh negative, antepartum 3. Marginal insertion of umbilical cord affecting management of mother - Per MFM, follow up growth US as clinically indicated Counseled patient to call triage/go to labor and delivery if she has any vaginal bleeding, leaking of fluid, vaginal pressure, four or more painful contractions in an hour, abdominal pain, decreased movements, headaches, blurry vision, or right upper quadrant pain. Patient verbalized understanding. RTO in 2 weeks for a return appointment or sooner if any concerns. Teena Ly PA-C documented in this encounter Nursing Notes * Roxane Mcdonald RN - 07/30/2024 2:20 PM EST Patient presents for return visit. Denies any concerns. documented in this encounter Plan of Treatment Upcoming Encounters Date Type Department Care Team (Late st Contact Info) Description 08/13/2024 2:15 PM EST Office Visit Gynecology/Obstetics [facility] [address] [place] [address] Teena Ly, ANAHI [address] [place] [phone] 08/28/2024 3:45 PM EST Office Visit Gynecology/Obstetics [place] [address] [place] [phone] Lisa Wyatt, ANAHI [address] [place] [address] Scheduled Orders Name Type Priority Associated Diagnoses Orde r Schedule 50-G GESTATIONAL GLUCOSE, 1 HOUR Lab Routine Supervision of other normal , antepartum Expected: 08/13/2024, Expires: 07/30/2025 CBC WITH WBC DIFFERENTIAL AND ANEMIA REFLEX WORKUP Lab Routine Supervision of other normal , antepartum Expected: 08/13/2024, Expires: 07/30/2025 SYPHILIS ANTIBODY SCREEN WITH REFLEX TO RPR Lab Routine Supervision of other normal , antepartum Expected: 08/13/2024, Expires: 07/30/2025 TYPE AND SCREEN Lab Routine Supervision of other normal , antepartum Expected: 08/13/2024, Expires: 08/30/2025 Health Maintenance Due Date Last Done Comments [...] Discussed due to patient's condition Care Teams Measurement Superintendent Relationship Specialty Start Date End Date Kali Howard PA-C [address] [place] [id number] PCP - General Physician Intelligence Director 01/11/23 documented as of this encounter"
--- OUTSIDE RECORDS SUMMARY | 2024-10-26 03:40 | External Medical Summary ---
Author Name Unknown Address Unknown Organization [id number]:LABORATORY [facility] [place] - [facility] [place] [address] [address] Laboratory Report Ordering Provider Test Date Status NICHOLAS LEHMANCLAIR 08/13/2024 15:07:47 Final Observation Date Value Abnormality Reference (Units ) Status Retic, % (auto) 08/13/2024 15:07:47 2.36 Above high normal 0.80-1.90 (%) Final Reticulocytes, Absolute 08/13/2024 15:07:47 77.4 31.3-100.1 (K/uL) Final Reticulocyte fraction, immature 08/13/2024 15:07:47 26.3 Above high normal 2.5-20.6 (%) Final Reticulocyte HGB 08/13/2024 15:07:47 36.5 29.7-37.4 (pg) Final Performing Location [facility] - [address] [place] [address]
--- OUTSIDE RECORDS SUMMARY | 2024-10-26 03:40 | External Medical Summary | Summary of Care ---
Author Name Unknown Organization [facility] Address [address] [place] [address] Phone [phone] Care Team Providers Care Plastics Design Engineer Name Role Phone Kali Howard PA-C Primary Care Provider [phone] [phone] Encounter Details Date Type Department Care Team (Latest Contact Info) Description 06/20/2024 2:27 PM EST - 06/20/2024 11:59 PM [facility] Hospital Encounter Radiology, [facility] [address] [place] [address] Arrived Discharge Disposition: Home - Self Care Allergies No known active allergiesdocumented as of this encounter (statuses as of 06/21/2024) Medications /Folic Acid+DHA 27-0.8-200 MG Oral Capsule [...] as of this encounter (statuses as of 06/21/2024) Active Problems Problem Noted Date Diagnosed Date Supervision of other normal , antepartu m 04/24/2024 Overview (05/23/2024): Estimated Date of Delivery: [...] [facility] Overview (08/24/2022): Rhogam given on 08/24/2022 at 28 weeks, 1 day. [facility] Overview (11/02/2022): MARY KATE 11/15/2022 Rub/Varc [...] information about breast pump. Note: Desires [place] delivery. Sebaceous cyst 12/25/2020 Estimated Date of Delivery Comme nts Yes 11/02/2024 Based on last me nstrual period of 01/27/2024 (Exact Date) documented as of this encounter (statuses as of 06/21/2024) Resolved Problems Problem Noted Date Diagnosed Date Resolved Date Constipation during pregnanc y in third trimester 05/03/2022 09/28/2022 Overview (07/16/2022): Has Colace if needed. Nausea and vomiting in 05/03/2022 09/28/2022 Overview (05/03/2022): She reports improved with Zofran. She declines further management at this time. documented as of this encounter (statuses as of 06/21/2024) Immunizations Name Administration Dates Next Due Hepatitis [...] money to get more. 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 on file N ot on file documented as of this encounter Plan of Treatment Upcoming Encounters Date Type Department Care Team (Late st Contact Info) Description 06/25/2024 2:15 PM EST Office Visit Gynecology/Obstetics [place] [address] [facility] [place] [phone] Teena Ly PA-C [address] [facility] [place] [phone] 07/30/2024 2:15 PM EST Office Visit Gynecology/Obstetics [place] [address] [facility] [place] [phone] Teena Ly PA-C [address] [place] [phone] Health Maintenance Due Date Last Done Comments Hepatitis B Vaccine (1 of 3 - 19+ 3-dose series) 2011 Depression Screening 12/23/2021 12/23/2020 COVID-19 Vaccine (1 - 2023-2 5 season) 2024 Influenza Vaccine [...] Not on filedocumented as of this encounter Procedures Procedure Name Priority Date/Time Associated Diagnosis Comments US PREG SINGLE/1ST GEST, 14 WEEKS OR LATER Routine 06/20/2024 3:56 PM EST Supervision of other normal , antepartum documented in this encounter Results * US PREG SINGLE/1ST GEST, 14 WEEKS OR LATER (06/20/2024 3:56 PM EST) Anatomical Region Laterality Modality Pelvis, Body Ultrasound 06/20/2024 4:15 PM EST Impressions 06/20/2024 4:13 PM EST IMPRESSION 1. Single live fetus with interval growth within normal limits utilizing MARY KATE from initial scan. 2. Anatomy demonstrated, as above except for limited visualization of the kidneys and spine. A follow-up ultrasound is recommended in 2 weeks. 3. Marginal placental cord insertion. Narrative 06/20/2024 4:13 PM EST EXAM US PREG SINGLE/1ST GEST, 14 WEEKS OR LATER - 06/20/2024 3:56 pm HISTORY For anatomy. COMPARISON US PELVIS TRANS-VAGINAL OB 04/20/2024 TECHNIQUE Transabdominal ultrasound images are provided with a worksheet FINDINGS General: : Alfaro Presentation: Transverse, head maternal right heart rate: 157 BPM Amniotic fluid: Within normal limits Placenta: Posterior, no previa Anatomy Lateral ventricles: Seen Cerebellum: Seen Cisterna magna: Seen C-Spine: Not seen T-Spine: Not seen L-Spine: Not seen S-Spine: Not seen Nuchal fold: 5.3 mm Orbits: Seen Facial profile: Seen Upper lip: Seen 4-chamber view: Seen LVOT: Seen RVOT: Seen Stomach: Seen Abdominal cord insertion: Seen Placental cord insertion: Marginal cord insertion-1.1 cm from placental edge Umbilical cord: 3 vessel cord Kidneys: Not seen Bladder: Seen Arms: Seen Legs: Seen Biometry The previous study of 04/20/2024 estimated the date of delivery of 10/27/2024. Utilizing that date, current gestational age is 21 weeks 4 days. BPD 5.2 cm-21 weeks 4 days HC 19.5 cm-21 weeks 5 days AC 17.2 cm-22 weeks 1 day FL 3.8 cm-22 weeks HL 3.6 cm-22 weeks 4 days HC/AC within normal limits. EFW: 462 g+/-49 g which is 38 %. Composite EGA on the current exam is 21 weeks 6 days. There has been appropriate growth. Maternal Structures Myometrium: Within normal limits. Right ovary: Not seen Left ovary: Not seen Please note that ultrasound cannot exclude all defects including chromosomal anomalies, nor can it guarantee a normal outcome. Procedure Note Klaudia Perez, DO - 06/20/2024 EXAM US PREG SINGLE/1ST GEST, 14 WEEKS OR LATER - 06/20/2024 3:56 pm HISTORY For anatomy. COMPARISON US PELVIS TRANS-VAGINAL OB 04/20/2024 TECHNIQUE Transabdominal ultrasound images are provided with a worksheet FINDINGS General: : Alfaro Presentation: Transverse, head maternal right heart rate: 157 BPM Amniotic fluid: Within normal limits Placenta: Posterior, no previa Anatomy Lateral ventricles: Seen Cerebellum: Seen Cisterna magna: Seen C-Spine: Not seen T-Spine: Not seen L-Spine: Not seen S-Spine: Not seen Nuchal fold: 5.3 mm Orbits: Seen Facial profile: Seen Upper lip: Seen 4-chamber view: Seen LVOT: Seen RVOT: Seen Stomach: Seen Abdominal cord insertion: Seen Placental cord insertion: Marginal cord insertion-1.1 cm from placentaledge Umbilical cord: 3 vessel cord Kidneys: Not seen Bladder: Seen Arms: Seen Legs: Seen Biometry The previous study of 04/20/2024 estimated the date of delivery of10/27/2024. Utilizing that date, current gestational age is 21 weeks 4days. BPD 5.2 cm-21 weeks 4 days HC 19.5 cm-21 weeks 5 days AC 17.2 cm-22 weeks 1 day FL 3.8 cm-22 weeks HL 3.6 cm-22 weeks 4 days HC/AC within normal limits. EFW: 462 g+/-49 g which is 38 %. Composite EGA on the current exam is 21 weeks 6 days. There has beenappropriate growth. Maternal Structures Myometrium: Within normal limits. Right ovary: Not seen Left ovary: Not seen Please note that ultrasound cannot exclude all defects includingchromosomal anomalies, nor can it guarantee a normal outcome. IMPRESSION IMPRESSION 1. Single live fetus with interval growth within normal limits utilizingEDD from initial scan. 2. Anatomy demonstrated, as above except for limited visualization of thekidneys and spine. A follow-up ultrasound is recommended in 2 weeks. 3. Marginal placental cord insertion. Lisa Juarez PA-C RAD ULTRASOUND F inal Result documented in this encounter Visit Diagnoses Diagnosis Supervision of other normal , antepartum documented in this encounter Advance Directives * Full Code (Latest Code Status on File) Date Activated Date Inactivated Comments 10/26/2023 3:58 PM 10/26/2023 9:05 PM This order r eflects the patients wishes and were consensually agreed upon. Question Answer Comments Discussion of Advance Direct jessica occurred with: Not Discussed due to patient's condition Care Teams Plastics Design Engineer Relationship Specialty Start Date End Date Kali Howard PA-C [address] [place], [place] [address] PCP - General Physician Extractor Puller 01/11/23 documented as of this encounter
--- OUTSIDE RECORDS SUMMARY | 2024-10-26 03:40 | External Medical Summary ---
Author Name Unknown Address Unknown Organization K01:LABORATORY [facility] - [facility] [place] [address] Laboratory Report Ordering Provider Test Date Status VANI LEHMAN 08/13/2024 15:07:47 Final Observation Date Value Abnormality Reference (Units ) Status WBC, Total 08/13/2024 15:07:47 11.56 Above high normal 4 .00-10.80 (K/uL) Final RBC 08/13/2024 15:07:47 3.35 3.85-5.15 (M/uL) Final Hemoglobin 08/13/2024 15:07:47 11.5 Below low normal 12 .0-15.3 (g/dL) Final Anemia reflex testing trigge rs on a HGB < 12.0 for Females and HGB < 13.0 for Males in accordance with the WHO Anemia Guidelines
Anemia reflex testing triggers on a HGB < 12.0 for Females and HGB < 13.0 for Males in accordance with the WHO Anemia Guidelines HCT 08/13/2024 15:07:47 34.6 Below low normal 36. 0-45.2 (%) Final MCV 08/13/2024 15:07:47 103.3 81.5-97.5 (fL) Final MCH 08/13/2024 15:07:47 34.3 27.0-34.0 (pg) Final MCHC 08/13/2024 15:07:47 33.2 32.0-36.0 (g/dL) Final RDW 08/13/2024 15:07:47 14.2 11.5-15.5 (%) Final Platelets 08/13/2024 15:07:47 232 140-400 (K /uL) Final MPV 08/13/2024 15:07:47 11.6 6.6-11.1 ( fL) Final Nucleated erythrocytes/100 leukocytes [Ratio] in Blood by Automated count 08/13/2024 15:07:47 0 <=0 (/100 WBCs) Janice landeros Performing Location LAB[facility]ATORY [facility] - [address] [facility] [address]
--- OUTSIDE RECORDS SUMMARY | 2024-10-26 03:40 | External Medical Summary ---
Author Name Unknown Address Unknown Organization K01:LAB[facility]ORY [facility] [place] - [address] [place] [address] Laboratory Report Ordering Provider Test Date Status VANI LEHMAN 08/13/2024 15:07:47 Final Observation Date Value Abnormality Reference (Units ) Status Folic Acid 08/13/2024 15:07:47 15.1 >4.5 (ng/ mL) Final Performing Location LABORATORY [facility] - [address] [place] [address]
--- OUTSIDE RECORDS SUMMARY | 2024-10-26 03:40 | External Medical Summary ---
Author Name Unknown Address Unknown Organization K01:[facility] [place] [address] [facility] [address] [place] [address] Laboratory Report Ordering Provider Test Date Status VANI LEHMAN 08/13/2024 15:07:47 Final Observation Date Value Abnormality Reference (Units ) Status Ferritin 08/13/2024 15:07:47 16 13-150 (ng /mL) Final Performing Location [facility] [address] [facility] [address] [place] [address]
--- OUTSIDE RECORDS SUMMARY | 2024-10-26 03:40 | External Medical Summary | Summary of Care ---
Author Name Unknown Organization [facility] Address [address] [facility] [place] [address] Phone [phone] Care Team Providers Care Car Sales Associate Name Role Phone Kali Howard PA-C Primary Care Provider [phone] Reason for Visit * Reason Onset Date Comments Test Results 06/20/2024 Encounter Details Date Type Department Care Team ([facility] st Contact Info) Description 06/20/2024 Telephone Gynecology/Obstetics [place] [address] [place] [phone] Lisa Wyatt PA-C [address] [place], [place] [phone] Test Results Allergies No known active allergiesdocumented as of this encounter (statuses as of 06/20/2024) Medications /Folic Acid+DHA 27-0.8-200 MG Oral Capsule [...] as of this encounter (statuses as of 06/20/2024) Active Problems Problem Noted Date Diagnosed Date [...] 17. Rh negative status during in third [facility] 06/14/2022 Overview (08/24/2022): Rhogam given on 08/24/2022 at 28 weeks, 1 day. Supervision of normal first , [facility] 05/03/2022 Overview (11/02/2022): MARY KATE 11/15/2022 [...] information about breast pump. Note: Desires [place] delivery. Sebaceous cyst 12/25/2020 Estimated Date of Delivery Comme nts Yes 11/02/2024 Based on last me nstrual period of 01/27/2024 (Exact Date) documented as of this encounter (statuses as of 06/20/2024) Resolved Problems Problem Noted Date Diagnosed Date Resolved Date Constipation during pregnanc y in third trimester 05/03/2022 09/28/2022 Overview (07/16/2022): Has Colace if needed. Nausea and vomiting in 05/03/2022 09/28/2022 Overview (05/03/2022): She reports improved with Zofran. She declines further management at this time. documented as of this encounter (statuses as of 06/20/2024) Immunizations Name Administration Dates Next Due Hepatitis [...] money to get more. Never true 06/12/2024 [place] Depression Scale Answer Date Recorded [place] Depression Scale Total 3 04/24/2024 The thought [...] No 06/12/2024 Does the household have a [facility] source of income? 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 Patient notified that her ultrasound shows that the anatomy is normal aside from not able to see spine and kidneys. Advised repeat ultrasound in 2 weeks. Patient agrees. Patient notified that remainder of ultrasound is normal aside from marginal cord insertion. Patientcounseled on what this means. Discussed Maternal Medicine referral, patient declines. Patientdesires to keep care local. Will send Ask-A-Doc to [facility] for recommendations. Answered patient's questions. documented in this encounter Plan of Treatment Upcoming Encounters Date Type Department Care Team (Late st Contact Info) Description 06/25/2024 2:15 PM EST Office Visit Gynecology/Obstetics [place] [address] [place] [phone] Teena Ly PA-C [address] [facility] [place] [phone] 07/30/2024 2:15 PM EST Office Visit Gynecology/Obstetics [place] [address] [place] [phone] Teena Ly PA-C [address] [facility] [place] [phone] Scheduled Orders Name Type Priority Associated Diagnoses Orde r Schedule US PREG FOLLOW-UP EACH FETUS Medical Imaging Routine Encounter for follow-up ultrasound of anatomy Expected: 07/04/2024 (Approximate), Expires: 07/21/2025 Health Maintenance Due Date Last Done Comments [...] as of this encounter Visit Diagnoses Diagnosis Encounter for follow-up ultrasound of anatomy- Primary documented in this encounter Advance Directives * Full Code (Latest Code Status on File) Date Activated Date Inactivated Comments 10/26/2023 3:58 PM 10/26/2023 9:05 PM This order r eflects the patients wishes and were consensually agreed upon. Question Answer Comments Discussion of Advance Direct jessica occurred with: Not Discussed due to patient's condition Care Teams Car Sales Associate Relationship Specialty Start Date End Date Kali Howard PA-C [address] [place] [address] PCP - General Physician Retail Product Advisor 01/11/23 documented as of this encounter
--- OUTSIDE RECORDS SUMMARY | 2024-10-26 03:40 | External Medical Summary | Summary of Care ---
Author Name Unknown Organization [facility] Address [address] [place] [address] Phone [phone] Care Team Providers Care Early Education Teacher Name Role Phone Kali Howard PA-C Primary Care Provider +1 -[phone] Reason for Visit * Reason Comments Return Visit Encounter Details Date Type Department Care Team (Late st Contact Info) Description 08/28/2024 3:45 PM EST Office Visit Gynecology/Obstetics [place] [address] [place] [address] Lisa Wyatt PA-C [address] [place] [address] Supervision of other normal , antepartum*; Rh negative, antepartum; Antepartum anemia complicating ; Marginal insertion of umbilical cord affecting management of mother Allergies No known active allergiesdocumented as of this encounter (statuses as of 09/02/2024) Medications /Folic Acid+DHA 27-0.8-200 MG Oral Capsule [...] tongue. 45 Tablet 1 10/08/202 4 Active B-6 100 MG Oral Tablet Take by mouth. Active Ferrous Sulfate 325 (65 Fe) MG Oral Tablet (Feosol)Indication s:Antepartum anemia complicating Take 1 Tablet by mouth in the morning. 30 Tablet 12 5 Active documented as of this encounter (statuses as of 09/02/2024) Active Problems Problem Noted Date Diagnosed Date Marginal insertion of umbili jaycob cord affecting management of mother 09/02/2024 Supervision of other normal , antepartu m 04/24/2024 Overview (09/02/2024): Estimated Date of Delivery: 11/02/24 Blood type: O-, rhogam given on 08/13/2024. Rubella not immune/ NIPT: declines S/p anatomy ultrasound. S/p CBC - anemia on iron. Passed 1 hour glucose test. TDAP: at 28 weeks Plans to * [...] as of this encounter (statuses as of 09/02/2024) Resolved Problems Problem Noted Date Diagnosed Date [...] information about breast pump. Note: Desires [place] delivery. Constipation during pregnanc y in third trimester 05/03/2022 09/28/2022 Overview (07/16/2022): Has Colace if needed. Nausea and vomiting in 05/03/2022 09/28/2022 Overview (05/03/2022): She reports improved with Zofran. She declines further management at this time. documented as of this encounter (statuses as of 09/02/2024) Immunizations Name Administration Dates Next Due Hepatitis [...] money to get more. Never true 06/12/2024 [place] Depression Scale Answer Date Recorded [place] Depression Scale Total 3 04/24/2024 The thought [...] No 06/12/2024 Does the household have a [facility] source of income? 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 BP 108/62 | Wt 80.4 kg (177 lb 4.8 oz) | LMP 01/27/2024 (Exact Date) | BMI 26.96 kg/m² | BSA 1.96 m² Doing well. Denies vaginal bleeding, leaking of fluid, vaginal pressure, contractions, abdominal pain, or abnormal vaginal discharge. Denies headaches, blurry vision, or right upper quadrant pain. Patient states she feels good movement. Patient reports that she has a cold, but managing. Patient has some heartburn, but Tums help. Patient is taking iron daily for the past 4 days. Patient has some nausea in the evening. Physical Exam General: alert and oriented, no acute distress Pulmonary: normal respiratory effort, no accessory muscle use. Abdomen: gravid, soft, non-tender heart rate: 140's bpm Fundal height: 30 cm OB [place] Problems (from 04/12/24 to present) Problem Noted Diagnosed Resolved Marginal insertion of umbilical cord affecting management of mother 09/02/2024 by Lisa Wyatt PA-C No Supervision of other normal , antepartum 04/24/2024 by Lisa Wyatt PA-C No Estimated Date of Delivery: 11/02/24 Blood type: O-, rhogam given on 08/13/2024. Rubella not immune/ NIPT: declines S/p anatomy ultrasound. S/p CBC - anemia on iron. Passed 1 hour glucose test. TDAP: at 28 weeks Plans to * feed contraception: * GBS at 36 weeks Rh negative, antepartum 09/15/2023 by Lisa Wyatt PA-C No Rhogam given on 08/13/2024. Plan: -Counseled patient regarding marginal cord insertion. Offered growth ultrasound in 3rd trimester asa precaution. Patient is going to discuss with her and let me know. -Rhogam given. -Patient desires Tdap vaccine next appointment. Patient currently has a cold so will do Tdap vaccine next appointment. -Taking iron currently. Counseled patient to call triage/go to labor [...] Nursing Notes * Soraida Cabrera CMA - 08/28/2024 3:51 PM EST Routine OB check. Denies questions or complaints. 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
--- OUTSIDE RECORDS SUMMARY | 2024-10-26 03:40 | External Medical Summary | Summary of Care ---
Author Name Unknown Organization [facility] Address [address] [place] [address] Phone [phone] Care Team Providers Care Rn Gyn Name Role Phone Kali Howard PA-C Primary Care Provider +1 [phone] Reason for Visit * Reason Comments Return Visit Encounter Details Date Type Department Care Team (Late st Contact Info) Description 09/12/2024 2:00 PM EST Office Visit Gynecology/Obstetics [place] [address] [place] [address] Lisa Wyatt PA-C [address] [place] [address] Supervision of other normal , antepartum*; Rh negative, antepartum; Marginal insertion of umbilical cord affecting management of mother; Need for prophylactic vaccination with combined mphtyrvghj-xcuyvrx-yq rtussis (DTP) vaccine Allergies No known active [...] information about breast pump. Note: Desires [place] delivery. Constipation during pregnanc y in third [...] money to get more. 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 [place] [place] [address] Teena Ly PA-C [address] [place] [address] 10/03/2024 8:30 AM EDT Office Visit Gynecology/Obstetics [place] [address] [facility] [place] [place] [address] Teena Ly PA-C [address] [place] [address] 10/11/2024 1:15 PM EDT Office Visit Gynecology/Obstetics [place] [address] [place] [address] Teena Ly PA-C [address] [place] [address] 10/17/2024 1:15 PM EDT Office Visit Gynecology/Obstetics [place] [address] [place] [address] Teena Ly PA-C [address] [place] [address] 10/24/2024 3:45 PM EDT Office Visit Gynecology/Obstetics [place] [address] [place] [phone] Lisa Wyatt PA-C [address] [place] [address] Health Maintenance Due Date Last Done Comments [...] mother Need for prophylactic vaccination with combined lmxrvqhput-hzpuoqm-yowqqbszo (DTP) vaccine documented in this encounter Advance Directives * Full Code (Latest Code Status on File) Date Activated Date Inactivated Comments 10/26/2023 3:58 PM 10/26/2023 9:05 PM This order r eflects the patients wishes and were consensually agreed upon. Question Answer Comments Discussion of Advance Direct jessica occurred with: Not Discussed due to patient's condition Care Teams Rn Gyn Relationship Specialty Start Date End Date Kali Howard PA-C PCP - General Physician Hand Ii Tube Bender 01/11/23 documented as of this encounter"
--- OUTSIDE RECORDS SUMMARY | 2024-10-26 03:40 | External Medical Summary | Summary of Care ---
Author Name Unknown Organization [facility] Address [address] [facility] [place] [address] Phone [phone] Care Team Providers Care Pile Driver Operator Helper Name Role Phone Kali Howard PA-C Primary Care Provider +1 [phone] Encounter Details Date Type Department Care Team (Late st Contact Info) Description 08/07/2024 Orders Only PATIENT PORTAL DO NOT DELETE THIS DEPT USED BY [place] TEM[place] [id number] Allergies No known active allergiesdocumented as of this encounter (statuses as of 08/07/2024) Medications /Folic Acid+DHA 27-0.8-200 MG Oral Capsule [...] as of this encounter (statuses as of 08/07/2024) Active Problems Problem Noted Date Diagnosed Date [...] 17. Rh negative status during in third [facility] 06/14/2022 Overview (08/24/2022): Rhogam given on 08/24/2022 at 28 weeks, 1 day. Supervision of normal first , antepartu m 05/03/2022 Overview (11/02/2022): MARY KATE 11/15/2022 Rub/Varc [...] information about breast pump. Note: Desires [place] delivery. Sebaceous cyst 12/25/2020 Estimated Date of Delivery Comme nts Yes 11/02/2024 Based on last me nstrual period of 01/27/2024 (Exact Date) documented as of this encounter (statuses as of 08/07/2024) Resolved Problems Problem Noted Date Diagnosed Date Resolved Date Constipation during pregnanc y in third trimester 05/03/2022 09/28/2022 Overview (07/16/2022): Has Colace if needed. Nausea and vomiting in 05/03/2022 09/28/2022 Overview (05/03/2022): She reports improved with Zofran. She declines further management at this time. documented as of this encounter (statuses as of 08/07/2024) Immunizations Name Administration Dates Next Due Hepatitis [...] money to get more. 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 on file N ot on file documented as of this encounter Plan of Treatment Upcoming Encounters Date Type Department Care Team (Late st Contact Info) Description 08/13/2024 2:15 PM EST Office Visit Gynecology/Obstetics [place] [address] [facility] [place] [phone] Teena Ly PA-C [facility] [place] [phone] 08/28/2024 3:45 PM EST Office Visit Gynecology/Obstetics [place] 68 [facility] [place] [phone] Lisa Wyatt PA-C [facility] [place] [address] Health Maintenance Due Date Last Done Comments [...] Discussed due to patient's condition Care Teams Pile Driver Operator Helper Relationship Specialty Start Date End Date Kali Howard PA-C [address] [place], [place] [address] robles [address] PCP - General Physician Street Inspector 01/11/23 documented as of this encounter
--- OUTSIDE RECORDS SUMMARY | 2024-10-26 03:40 | External Medical Summary ---
Author Name Unknown Address Unknown Organization K[place] [place] [address] [place] [address] Laboratory Report Ordering Provider Test Date Status VANI LEHMAN 08/13/2024 15:07:47 Final Observation Date Value Abnormality Reference (Units ) Status Glucose [Moles/volume] in Serum or Plasma --1 hour post 50 g glucose PO 08/13/2024 15:07:47 89 70-129 (mg/dL) Final Performing Location [facility] [place] [address] [place] [address]
--- OUTSIDE RECORDS SUMMARY | 2024-10-26 03:40 | External Medical Summary ---
Author Name Unknown Address Unknown Organization [id number] [place] [address] [place] [address] Laboratory Report Ordering Provider Test Date Status VANI LEHMAN 08/13/2024 15:07:47 Final Observation Date Value Abnormality Reference (Units ) Status Vitamin B12 08/13/2024 15:07:47 409 348-3190 (pg/mL) Final Performing Location [facility] [place] [address] [place] [address]
--- OUTSIDE RECORDS SUMMARY | 2024-10-26 03:40 | External Medical Summary | Summary of Care ---
Author Name Unknown Organization [facility] Address [address] [place] [address] Phone [phone] Care Team Providers Care Transmission Worker Name Role Phone Kali Howard PA-C Primary Care Provider +1 -[phone] Reason for Visit * Reason Onset Date Comments Test Results 06/20/2024 Unexpected or In determinate Result Encounter Details Date Type Department Care Team ([facility] st Contact Info) Description 06/20/2024 Telephone Gynecology/Obstetics [place] [address] [place] [address] Lisa Wyatt PA-C [address] [place] [address] Test Results (Unexpected or Indeterminate ... Allergies No known active allergiesdocumented as of [...] 17. Rh negative status during in third [facility] 06/14/2022 Overview (08/24/2022): Rhogam given on 08/24/2022 at 28 weeks, 1 day. Supervision of normal first , [facility] 05/03/2022 Overview (11/02/2022): MARY KATE 11/15/2022 Rub/Varc [...] money to get more. Never true 06/12/2024 [place] Depression Scale Answer Date Recorded [place] Depression Scale Total 3 04/24/2024 The thought [...] Wyatt PA-C - 06/20/2024 5:24 PM EST Noted. * Telephone Encounter - Mony ShruthiGIOVANNA - 06/20/2024 5:02 PM EST Wild- The radiologist discovered an unexpected or indeterminate finding on Rochelle Martinez ([id number]) and asks that you review the following report. Study Type:US PREG SINGLE/1ST GEST, 14 WEEKS OR LATER Date of Study: 06/20/2024 IMPRESSION IMPRESSION 1. Single live fetus with interval growth within normal limits utilizing MARY KATE from initial scan. 2. Anatomy demonstrated, as above except for limited visualization of the kidneys and spine. A follow-up ultrasound is recommended in 2 weeks. 3. Marginal placental cord insertion. Please respond to this encounter to acknowledge receipt of this message and take responsibility to ensure this report is reviewed. Thank you, GIOVANNA Xie Client Service Rep [facility] documented in this encounter Plan of Treatment Upcoming Encounters Date Type Department Care Team (Late st Contact Info) Description 06/25/2024 2:15 PM EST Office Visit Gynecology/Obstetics [place] 68 [place] [address] Teena Ly PA-C [facility] [place] [address] 07/30/2024 2:15 PM EST Office Visit Gynecology/Obstetics [place] [address] [place] [address] Teena Ly PA-C [facility] [address] Health Maintenance Due Date Last Done Comments [...] Discussed due to patient's condition Care Teams Transmission Worker Relationship Specialty Start Date End Date Kali Howard PA-C [address] [place] [address] PCP - General Physician Test Fixture Designer 01/11/23 documented as of this encounter
--- OUTSIDE RECORDS SUMMARY | 2024-10-26 03:40 | External Medical Summary ---
Author Name Unknown Address Unknown Organization K01:[facility] - [address] [place] [address] Laboratory Report Ordering Provider Test Date Status FALLONVANI 08/13/2024 15:07:47 Final Observation Date Value Abnormality Reference (Units ) Status Iron 08/13/2024 15:07:47 45 33-151 (ug/dL) Final Iron-binding capacity 08/13/2024 15:07:47 420 250-425 (ug/dL) Final Transferrin Sat % 08/13/2024 15:07:47 11 Below low normal 15-55 (%) Final Performing Location [facility] - [address] [place] [address]
--- OUTSIDE RECORDS SUMMARY | 2024-10-26 03:40 | External Medical Summary ---
Author Name Unknown Address Unknown Organization K01:[facility] [place] [address] [address] Laboratory Report Ordering Provider Test Date Status VANI LEHMAN 08/13/2024 15:07:47 Final Observation Date Value Abnormality Reference (Units ) Status Creatinine 08/13/2024 15:07:47 0.6 0.5-1.0 (mg/dL) Final Glomerular filtration rate/1.73 sq M.predicted [Volume Rate/Area] in Serum, Plasma or Blood by Creatinine-based formula (CKD-EPI) 08/13/2024 15:07:47 >90 >=60 (mL/min) Final eGFR is calculated based on the CKD-EPI 2020 equation. Performing Location [facility] [place] [address] [place] [address]
--- OUTSIDE RECORDS SUMMARY | 2024-10-26 03:40 | External Medical Summary | Summary of Care ---
Author Name Unknown Organization [facility] Address [address] [place] [address] Phone [phone] Care Team Providers Care Sweeper Driver Name Role Phone Kali Howard PA-C Primary Care Provider +1 -[phone] Reason for Visit * Reason Comments Return Visit Encounter Details Date Type Department Care Team (Late st Contact Info) Description 07/30/2024 2:15 PM EST Office Visit Gynecology/Obstetics [place] [address] [place] [phone] Teena Ly PA-C [address] [place] [address] Supervision of other normal , [...] 17. Rh negative status during in third [facility] 06/14/2022 Overview (08/24/2022): Rhogam given on [...] money to get more. 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
--- OUTSIDE RECORDS SUMMARY | 2024-10-26 03:40 | External Medical Summary ---
Author Name Unknown Address Unknown Organization K01:[facility] [place] - [address] [facility] [address] Laboratory Report Ordering Provider Test Date Status FALLONNICHOLAS BONDSLUDWIG 08/13/2024 15:07:47 Final Observation Date Value Abnormality Reference (Units ) Status SYNC LEUKOCYTES IN BLOOD BY AUTOMATED COUNT 08/13/2024 15:07:47 11.56 Above high normal 4.00-10.80 (K/uL) Final Segs 08/13/2024 15:07:47 75.6 Above high normal 40.0-75.0 (%) Final Lymphs % 08/13/2024 15:07:47 16.5 Below low normal 18.0-42.0 (%) Final Monos 08/13/2024 15:07:47 6.5 1.0-11.0 (%) Final Eosinophils 08/13/2024 15:07:47 0.5 0.0-6.0 (%) Final Basos 08/13/2024 15:07:47 0.3 0.0-2.0 (%) Final Immature Granulocyte, Percent 08/13/2024 15:07:47 0.6 0.0-2.0 (%) Final Absolute Segs 08/13/2024 15:07:47 8.73 Above high normal 1.80-7.70 (K/uL) Final Lymphs, absolute 08/13/2024 15:07:47 1.91 1.00-4.80 (K/ul) Final Monos, Abs 08/13/2024 15:07:47 0.75 0.00-1.10 (K/uL) Final Eos, Abs 08/13/2024 15:07:47 0.06 0.00-0.70 (K/uL) Final Basos, Abs 08/13/2024 15:07:47 0.04 0.00-0.20 (K/uL) Final Immature Granulocytes, Number 08/13/2024 15:07:47 0.07 0.00-0.20 (K/uL) Final Performing Location [facility] [place] - [address] [facility] [address]
--- OUTSIDE RECORDS SUMMARY | 2024-10-26 03:40 | External Medical Summary | Summary of Care ---
Author Name Unknown Organization [facility] Address [address] [place] [address] Phone [phone] Care Team Providers Care Field Collector Name Role Phone Kali Howard PA-C Primary Care Provider +1 -[phone] Reason for Visit * Reason Onset Date Comments Advice 06/20/2024 Encounter Details Date Type Department Care Team ([facility] st Contact Info) Description 06/20/2024 Telephone Gynecology/Obstetics [place] [address] [place] [address] Lisa Wyatt PA-C [address] [place] [address] Advice Allergies No known active allergiesdocumented as of this encounter (statuses as of 06/23/2024) Medications /Folic Acid+DHA 27-0.8-200 MG Oral Capsule [...] as of this encounter (statuses as of 06/23/2024) Active Problems Problem Noted Date Diagnosed Date [...] 17. Rh negative status during in third [facility] 06/14/2022 Overview (08/24/2022): Rhogam given on 08/24/2022 at 28 weeks, 1 day. Supervision of normal first , [facility] 05/03/2022 Overview (11/02/2022): MARY KATE [...] information about breast pump. Note: Desires [place] delivery. Sebaceous cyst 12/25/2020 Estimated Date of Delivery Comme nts Yes 11/02/2024 Based on last me nstrual period of 01/27/2024 (Exact Date) documented as of this encounter (statuses as of 06/23/2024) Resolved Problems Problem Noted Date Diagnosed Date Resolved Date Constipation during pregnanc y in third trimester 05/03/2022 09/28/2022 Overview (07/16/2022): Has Colace if needed. Nausea and vomiting in 05/03/2022 09/28/2022 Overview (05/03/2022): She reports improved with Zofran. She declines further management at this time. documented as of this encounter (statuses as of 06/23/2024) Immunizations Name Administration Dates Next Due Hepatitis [...] money to get more. Never true 06/12/2024 [place] Depression Scale Answer Date Recorded [place] Depression Scale Total 3 04/24/2024 The thought [...] No 06/12/2024 Does the household have a [facility] source of income? 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 documented in this encounter Plan of Treatment Upcoming Encounters Date Type Department Care Team (Late st Contact Info) Description 06/25/2024 2:15 PM EST Office Visit Gynecology/Obstetics [place] [address] [place] [address] Teena Ly PA-C [address] [place] [address] 07/04/2024 2:45 PM EST Imaging Radiology, [place] [address] [place] [address] 07/30/2024 2:15 PM EST Office Visit Gynecology/Obstetics [place] [address] [place] [phone] Teena Ly PA-C 68 [facility] [phone] Health Maintenance Due Date Last Done Comments [...] Discussed due to patient's condition Care Teams Field Collector Relationship Specialty Start Date End Date Kali Howard PA-C [address] [place] [address] PCP - General Physician Stock Mover 01/11/23 documented as of this encounter
--- OUTSIDE RECORDS SUMMARY | 2024-10-26 03:41 | External Medical Summary | Summary of Care ---
Author Name Unknown Organization [facility] Address [address] [place] [address] Phone [phone] Care Team Providers Care Supervisor Wood Room Name Role Phone Kali Howard PA-C Primary Care Provider [phone] [phone] Encounter Details Date Type Department Care Team (Late st Contact Info) Description 05/21/2024 Telephone Gynecology/Obstetics [place] 68 [place] [address] Teena Ly PA-C 68 [facility] [place] [address] Allergies No known active allergiesdocumented as of this encounter (statuses as of 05/21/2024) Medications Medication Sig Dispensed Refills Start Date End Date Status /Folic Acid+DHA 27-0.8-200 MG Oral Capsule Take by mouth . Active Acetaminophen 325 MG Oral Tablet (Tylenol) Take 3 Tablets by mouth every 8 hours as needed for Pain, Mild or Pain, Moderate. Alternate with Ibuprofen 30 Tablet 10/26/2023 Active Ondansetron 4 MG Oral Tablet Disintegrating (Zofran)Indications:Pr egnancy related nausea, antepartum Place 1 Tablet on tongue every 8 hours as needed for Nausea. dissolve on tongue. 45 Tablet 1 04/24/2024 Active documented as of this encounter (statuses as of 05/21/2024) Active Problems Problem Noted Date Diagnosed Date Supervision of other normal , antepartu m 04/24/2024 related nausea, antepartum 04/24/2024 Retained products of conception after miscarriag e 10/26/2023 Missed 10/26/2023 Rh negative, antepartum 09/15/2023 Varicose veins during 09/14/2022 Overview: Varicose veins in right ankle area. Patient asymptomatic. Antepartum anemia complicating 023 Overview: Hemoglobin 11.9. Vitamin B12 low. Taking vitamin B12 daily. Ferritin 17. Rh negative status during in third tri mester 06/14/2022 Overview: Rhogam given on 08/24/2022 at 28 weeks, 1 day. Supervision of normal first , antepartu 05/03/2022 Overview: MARY KATE 11/15/2022 Rub/Varc immune O negative [...] information about breast pump. Note: Desires [place] delivery. Sebaceous cyst 12/25/2020 Estimated Date of Delivery Comme nts Yes 11/02/2024 Based on last me nstrual period of 01/27/2024 (Exact Date) documented as of this encounter (statuses as of 05/21/2024) Resolved Problems Problem Noted Date Diagnosed Date Resolved Date Constipation during pregnanc y in third trimester 05/03/2022 09/28/2022 Overview: Has Colace if needed. Nausea and vomiting in 05/03/2022 09/28/2022 Overview: She reports improved with Zofran. She declines further management at this time. documented as of this encounter (statuses as of 05/21/2024) Immunizations Name Administration Dates Next Due Hepatitis [...] the money to buy more. Never true 09/10/19 Within the past 12 months, t he food you bought just didn't last and you didn't have money to get more. Never true 09/10/2023 [place] Depression Scale Answer Date Recorded [place] Depression Scale Total 3 04/24/2024 The thought of harming myself has occurred to me . Never 04/24/2024 Childcare Answer Date Recorded Do you feel overwhelmed with taking care of a child, family member or friend? No 09/10/2023 Does your family need help f inding childcare? (Household - for ages 0-17 years) Not on file 09/10/2023 Clothing Answer Date Recorded Have you been unable to get clothing when it was really needed? No 09/10/2023 Is your family able to get c lothes or diapers when needed? (Household - for ages 0-17 years) Not on file 09/10/2023 Personal Safety Answer Date Recorded Do you feel unsafe or have concerns for your saf ety? No 09/10/2023 Do you have concerns for you r family's safety? (Household - for ages 0-17 years) Not on file 09/10/2023 Utilities Answer Date Recorded Do you have trouble paying y our heating, water, or electric bill? No 09/10/2023 Is your family able to pay t he heat, water, or electric bill? (Household - for ages 0-17 years) Not on file 09/10/2023 Does your family have access to good internet? (Household - for ages 0-17 years) Not on file 09/10/2023 Employment Status Answer Date Recorded Are you unemployed or without regular income? No 09/10/2023 Does the household have a re gular source of income? (Household - for ages 0-17 years) Not on file 09/10/2023 Social Connections Answer Date Recorded How often do you feel lonely or isolated from th ose around you? Never 09/10/2023 Financial Resource Strain Answer Date R ecorded Do you have any trouble payi ng for your medications, or do you think you might in the future? No 09/10/2023 Does your family have troubl e paying for medicine? (Household - for ages 0-17 years) Not on file 09/10/2023 Transportation Needs Answer Date Record ed READ ONLY Do you have troubl e getting a ride to medical visits or work? Never True 09/10/2023 Does your family have a hard time getting a ride to doctors visits? (Household - for ages 0-17 years) Not on file 09/10/2023 Has lack of transportation k ept you from medical appointments, meetings, work, or from getting things needed for daily living? Check all that apply. (Adult - for ages 18 years and over) Not on file 09/10/2023 Do you (or your family) have trouble finding or paying for a ride (transportation)? (Household - for ages 0-17 years) Not on file 09/10/2023 Housing Stability Answer Date Recorded Do you currently live in a s helter or have no steady place to sleep at night? No 09/10/2023 READ ONLY Do you think you a re at risk of becoming homeless? No 09/10/2023 Does your family worry about paying for your home or becoming homeless? (Household - for ages 0-17 years) Not on file 0 09/10/2023 Are you homeless or worried that you might be in the future? (Adult - for ages 18 years and over) Not on file Are you (or your family) stefany eless or worried that you might be in the future? (Household - for ages 0-17 years) Not on file Food Insecurity Answer Date Recorded Do you need food for this week? No 09/10/2023 Are you able to get enough f ood for your family? (Household - for ages 0-17 years) Not on file 09/10/2023 Does your family need food t his week? (Household - for ages 0-17 years) Not on file 09/10/2023 Do you always have enough fo od for your family? (Household - for ages 0-17 years) Not on file 09/10/2023 Estimated Date of Delivery Comme nts Yes 11/02/2024 Based on last me nstrual period of 01/27/2024 (Exact Date) Sex and Gender Information Value Date Recorded Sex Assigned at Female 12/23/2020 7:23 PM EDT Gender Identity Female 12/23/2020 7:23 PM EDT Sexual Orientation Straight 12/23/2020 7: 23 PM EDT Job Start Date Occupation Industry Not on file Not on file Not on file documented as of this encounter Miscellaneous Notes * Telephone Encounter - Laura Warren RN - 05/21/2024 9:50 AM EST Attempt to contact pt. Left message to return call to office. documented in this encounter Plan of Treatment Upcoming Encounters Date Type Department Care Team (Late st Contact Info) Description 05/23/2024 3:15 PM EST Office Visit Gynecology/Obstetics [place] 68 [facility] [place] [phone] Teena Ly PA-C 68 [facility] [place] [phone] 06/20/2024 2:30 PM EST Appointment Radiology, [facility] [address] 06/25/2024 3:15 PM EST Office Visit Gynecology/Obstetics [place] 68 [facility] [place] [phone] Teena Ly PA-C 68 [facility] [place] [phone] 07/30/2024 3:15 PM EST Office Visit Gynecology/Obstetics [address] [phone] Teena Ly PA-C [address] [place] [phone] Health Maintenance Due Date Last Done Comments [...] Discussed due to patient's condition Care Teams Supervisor Wood Room Relationship Specialty Start Date End Date Kali Howard PA-C [address] [place] [id number] PCP - General Physician Adjunct Lecturer 01/11/23 documented as of this encounter
--- OUTSIDE RECORDS SUMMARY | 2024-10-26 03:41 | External Medical Summary | Summary of Care ---
Author Name Unknown Organization [facility] Address [address] [place] [address] Phone [phone] Care Team Providers Care Senior Sous Chef Name Role Phone Kali Howard PA-C Primary Care Provider [phone] [phone] Reason for Visit * Reason Onset Date Comments Test Results 06/20/2024 Unexpected or In determinate Result Encounter Details Date Type Department Care Team ([facility] st Contact Info) Description 06/20/2024 Telephone Gynecology/Obstetics [place] [address] [place] [address] Lisa Wyatt PA-C 68 [place] [address] Test Results (Unexpected or Indeterminate [...] 17. Rh negative status during in third [facility] 06/14/2022 Overview (08/24/2022): Rhogam given on [...] money to get more. 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 Thank you, GIOVANNA Xie Client Service [facility] documented in this encounter Plan of Treatment Upcoming Encounters Date Type Department Care Team (Late st Contact Info) Description 06/25/2024 2:15 PM EST Office Visit Gynecology/Obstetics [place] [facility] [place] [phone] Teena Ly PA-C 68 [facility] [place] [phone] 07/30/2024 2:15 PM EST Office Visit Gynecology/Obstetics [place] [facility] [place] [phone] Teena Ly PA-C [facility] [place] [phone] Health Maintenance Due Date Last Done Comments [...] Discussed due to patient's condition Care Teams Senior Sous Chef Relationship Specialty Start Date End Date Kali Howard PA-C [address] [place] [address] PCP - General Physician Apprentice Electrician 01/11/23 documented as of this encounter
--- OUTSIDE RECORDS SUMMARY | 2024-10-26 03:41 | External Medical Summary | Summary of Care ---
Author Name Unknown Organization [facility] Address [address] [place] [address] Phone [phone] Care Team Providers Care Shovel Mechanic Name Role Phone Kali Howard PA-C Primary Care Provider [phone] Reason for Visit * Reason Onset Date Comments Test Results 06/20/2024 Unexpected or In determinate Result Encounter Details Date Type Department Care Team ([facility] st Contact Info) Description 06/20/2024 Telephone Gynecology/Obstetics [place] [address] [place] [address] Lisa Wyatt PA-C 68 [place] [address] Test Results (Unexpected or Indeterminate [...] money to get more. 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 * Telephone Encounter - Mony ShruthiGIOVANNA - 06/20/2024 5:02 PM EST Wild- The radiologist discovered an unexpected or indeterminate finding on Rochelle Martinez ([id number]) and asks that you review the following [...] Thank you, GIOVANNA Xie Client Service Rep [facility] documented in this encounter Plan of Treatment Upcoming Encounters Date Type Department Care Team (Late st Contact Info) Description 06/25/2024 2:15 PM EST Office Visit Gynecology/Obstetics [place] 68 [place] [phone] Teena Ly PA-C 68 [facility] [place] [address] 07/30/2024 2:15 PM EST Office Visit Gynecology/Obstetics [place] 68 [place] [address] Teena Ly PA-C [facility] [phone] Health Maintenance Due Date Last Done Comments [...] Discussed due to patient's condition Care Teams Shovel Mechanic Relationship Specialty Start Date End Date Kali Howard PA-C [address] [place] [phone] PCP - General Physician Access Lead 01/11/23 documented as of this encounter
--- OUTSIDE RECORDS SUMMARY | 2024-10-26 03:41 | External Medical Summary | Summary of Care ---
Author Name Unknown Organization [facility] Address [address] [facility] [place] [address] Phone [phone] Care Team Providers Care Building Engineer Name Role Phone Kali Howard PA-C Primary Care Provider [phone] [phone] Reason for Visit * Reason Comments Return Visit Encounter Details Date Type Department Care Team (Late st Contact Info) Description 05/23/2024 2:00 PM EST Office [facility] [address] [place] [address] Estephania James PA-C [address] [place] [address] Supervision of other normal , antepartum*; Rh negative, antepartum Allergies No known active allergiesdocumented as of this encounter (statuses as of 05/23/2024) Medications Medication Sig Dispensed Refills Start Date [...] as of this encounter (statuses as of 05/23/2024) Active Problems Problem Noted Date Diagnosed Date Supervision of other normal , [facility] 04/24/2024 Overview: Estimated Date of Delivery: 11/02/24 Blood type: O-, rhogam at 28 weeks Rubella not immune/ NIPT: declines Anatomy scan: at 20 weeks Third trimester labs: at 28 weeks TDAP: at 28 weeks Plans to * feed contraception: * GBS at 36 weeks related nausea, antepartum 04/24/2024 Retained products of conception after miscarriag e 10/26/2023 Missed 10/26/2023 Rh negative, antepartum 09/15/2023 Overview: Rhogam at 28 weeks and with any vaginal bleeding Varicose veins during 09/14/2022 Overview: Varicose veins in right ankle area. Patient asymptomatic. Antepartum anemia complicating 023 Overview: Hemoglobin 11.9. Vitamin B12 low. Taking vitamin B12 daily. Ferritin 17. Rh negative status during in [facility] 06/14/2022 Overview: Rhogam given on 08/24/2022 at 28 weeks, 1 day. Supervision of normal first , [facility] 05/03/2022 Overview: MARY KATE 11/15/2022 Rub/Varc immune [...] information about breast pump. Note: Desires [place] delivery. Sebaceous cyst 12/25/2020 Estimated Date of Delivery Comme nts Yes 11/02/2024 Based on last me nstrual period of 01/27/2024 (Exact Date) documented as of this encounter (statuses as of 05/23/2024) Resolved Problems Problem Noted Date Diagnosed Date Resolved Date Constipation during pregnanc y in third trimester 05/03/2022 09/28/2022 Overview: Has Colace if needed. Nausea and vomiting in 05/03/2022 09/28/2022 Overview: She reports improved with Zofran. She declines further management at this time. documented as of this encounter (statuses as of 05/23/2024) Immunizations Name Administration Dates Next Due Hepatitis [...] money to buy more. Never true 09/10/19 24 Within the past 12 months, t he food you bought just didn't last and you didn't have money to get more. Never true 09/10/2023 [place] Depression Scale Answer Date Recorded [place] Depression Scale Total 3 04/24/2024 The thought [...] Reading Time Taken Comments Blood Pressure 94/58 05/23/2024 2:05 PM EST Pulse - - Temperature - - Respiratory Rate - - Oxygen Saturation - - Inhaled Oxygen Concentration - - Weight 71.5 kg (157 lb 11.2 oz) 05/23/2024 2:05 PM EST Height - - Body Mass Index 23.98 12/01/2022 1:42 PM EDT documented in this encounter Progress Notes * Estephania James PA-C - 05/23/2024 2:17 PM EST Name: Rochelle Martinez; ; Encounter Date: 05/23/2024 S: 34 year old 16w5d presents for OB visit. She reports some possible FM, denies UTI symptoms, LOF, VB, and contraction pain. Current concerns: None Patient has received her flu shot this year. O: BP 94/58 | Wt 71.5 kg (157 lb 11.2 oz) | LMP 01/27/2024 (Exact Date) | BMI 23.98 kg/m² | BSA 1.85 m² FH: N/A FHTs: 140's A/P: 34 year old 16w5d presents for OB visit. We discussed and reviewed the known complications and reviewed the plans as follows: OB [place] Problems (from 04/12/24 to present) Problem Noted Resolved Supervision of other normal , antepartum 04/24/2024 by Lisa Wyatt PA-C No Overview Signed 05/23/2024 2:19 PM by Estephania James PA-C Estimated Date of Delivery: 11/02/24 Blood type: O-, rhogam at 28 weeks Rubella not immune/ NIPT: declines Anatomy scan: at 20 weeks Third trimester labs: at 28 weeks TDAP: at 28 weeks Plans to * feed contraception: * GBS at 36 weeks Rh negative, antepartum 09/15/2023 by Lisa Wyatt PA-C No Overview Signed 05/23/2024 2:20 PM by Estephania James PA-C Rhogam at 28 weeks and with any vaginal bleeding - Anatomy scan scheduled for 06/20/2024. Follow Up: Return in about 4 weeks (around 06/20/2024) for Return . | For: Return Routine return precautions discussed - counseled patient to call triage if she has any vaginal bleeding, leaking of fluid, four or more painful contractions in an hour, or decreased movement. Estephania James PA-C documented in this encounter Nursing Notes * Laura Warren RN - 05/23/2024 2:05 PM EST Routine OB check. Denies questions or complaints. documented in this encounter Plan of Treatment Upcoming Encounters Date Type Department Care Team (Late st Contact Info) Description 06/20/2024 2:30 PM EST Appointment Radiology, [facility] [address] [place] [address] 06/25/2024 2:15 PM EST Office Visit Gynecology/Obstetics [place] [address] [place] [phone] Teena Ly PA-C 68 [facility] [place] [phone] 07/30/2024 2:15 PM EST Office Visit Gynecology/Obstetics [place] 68 [facility] [place] [facility] [place] [phone] Teena Ly PA-C [facility] [phone] Health Maintenance Due Date Last Done [...] isoimmunization affecting 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 Question Answer Comments Discussion of Advance Direct jessica occurred with: Not Discussed due to patient's condition Care Teams Building Engineer Relationship Specialty Start Date End Date Kali Howard PA-C [address] [place] [phone] PCP - General Physician Bean Sprout Grower 01/11/23 documented as of this encounter"
--- OUTSIDE RECORDS SUMMARY | 2024-10-26 03:41 | External Medical Summary | Summary of Care ---
Author Name Unknown Organization [facility] Address [address] [place] [address] Phone [phone] Care Team Providers Care Structurer Name Role Phone Kali Howard PA-C Primary Care Provider [phone] Reason for Visit * Reason Comments New Visit Encounter Details Date Type Department Care Team (Late st Contact Info) Description 04/24/2024 2:15 PM EDT Office Visit Gynecology/Obstetics [place] [address] [place] [address] Lisa Wyatt PA-C [address] [place] [address] Supervision of other normal , antepartum*; Rh negative, antepartum; related nausea, antepartum Allergies No known active allergiesdocumented as of this encounter (statuses as of 04/29/2024) Medications Medication Sig Dispensed Refills Start Date End Date Status /Folic Acid+DHA 27-0.8-200 MG Oral Capsule Take by mouth . Acti ve Acetaminophen 325 MG Oral Tablet (Tylenol) Take 3 Tablets by mouth every 8 hours as needed for Pain, Mild or Pain, Moderate. Alternate with Ibuprofen 30 Tablet 10/26/2023 Active Ondansetron 4 MG Oral Tablet Disintegrating (Zofran)Indications: related nausea, antepartum Place 1 Tablet on tongue every 8 hours as needed for Nausea. dissolve on tongue. 45 Tablet 1 04/24/2024 Active Ondansetron 4 MG Oral Tablet Disintegrating (Zofran) Place 1 Tablet on tongue every 8 hours as needed for Nausea. dissolve on tongue. 20 Tablet 10/06/2023 Discontinue d(Refill) documented as of this encounter (statuses as of 04/29/2024) Active Problems Problem Noted Date Diagnosed Date Supervision of other normal , [facility] 04/24/2024 related nausea, antepartum 04/24/2024 Retained products of conception after miscarriag e 10/26/2023 Missed 10/26/2023 Rh negative, antepartum 09/15/2023 Varicose veins during 09/14/2022 Overview: Varicose veins in right ankle area. Patient asymptomatic. Antepartum anemia complicating 023 Overview: Hemoglobin 11.9. Vitamin B12 low. Taking vitamin B12 daily. Ferritin 17. Rh negative status during in third [facility] 06/14/2022 Overview: Rhogam given on 08/24/2022 at 28 weeks, 1 day. Supervision of normal first , [facility] 05/03/2022 Overview: MARY KATE 11/15/2022 Rub/Varc [...] information about breast pump. Note: Desires [facility] delivery. Sebaceous cyst 12/25/2020 Estimated Date of Delivery Comme nts Yes 11/02/2024 Based on last me nstrual period of 01/27/2024 (Exact Date) documented as of this encounter (statuses as of 04/29/2024) Resolved Problems Problem Noted Date Diagnosed Date Resolved Date Constipation during pregnanc y in third trimester 05/03/2022 09/28/2022 Overview: Has Colace if needed. Nausea and vomiting in 05/03/2022 09/28/2022 Overview: She reports improved with Zofran. She declines further management at this time. documented as of this encounter (statuses as of 04/29/2024) Immunizations Name Administration Dates Next Due Hepatitis [...] money to get more. Never true 09/10/2023 [place] Depression Scale Answer Date Recorded [place] Depression Scale Total 3 04/24/2024 The thought [...] Sign Reading Time Taken Comments Blood Pressure 100/60 04/24/2024 2:22 PM EDT Pulse - - Temperature - - Respiratory Rate - - Oxygen Saturation - - Inhaled Oxygen Concentration - - Weight 69 kg (152 lb 3.2 oz) 04/24/2024 2:22 PM EDT Height - - Body Mass Index 23.14 12/01/2022 1:42 PM EDT documented in this encounter Progress Notes * Lisa Wyatt PA-C - 04/24/2024 2:23 PM EDT Chief Complaint: Rochelle Martinez is a 34 year old here for a new visit. Patient's last menstrual period was 01/27/2024. Patient is . History of Present Illness: Previous pregnancies and previous obstetric history: 11/20/2022 - vaginal delivery at 40 weeks, 5 days. 8 lbs 11 oz. 10/2023 - miscarriage. Current symptoms of include: Patient reports that she is having all day nausea. Patient reports that Zofran works well and only uses when really needed. Patient needs a refill. Patient denies vaginal bleeding and denies abdominal pain. She is feeling good about this . Social support is good. She denies use of alcohol/drugs/tobacco. She denies domestic violence. Medication exposure during : Zofran Cats in the home:Yes - does not change the litter box. Illness since she conceived:COVID in January. History of STDs:No. History of HSV:No. Tuberculosis exposure:No. Current Medications: vitamin, Zofran as needed Medical History: varicose veins, history of miscarriage, history of shingles Surgical History: wisdom teeth removal, treatment for missed , drainage of pilonidal cyst Family History: Patient denies personal or family history of DVT/PE/blood clotting disorders. delivery/labor: No History of : No Personal history and family history of genetic problems: Cystic fibrosis:No. Fragile X:No. Mental retardation:No. defects:No. Lumpkin's disease:No. Neural tube defects:No. Sickle cell trait or disease:No. Congenital heart disease:No. Down syndrome:No. Chromosome conditions:No. Blood disorders or hemophilia:No. Trisomy 18:No. Patient declines genetic testing. She plans to via pumping. Her last pap was 08/2023 and it was normal. Does not have a history of abnormal pap smears. Patient has completed the Influenza vaccine. Patient declines COVID-19 vaccine. Review of Systems: Denies fever or chills. Denies thyroid disease history. Denies coughing, wheezing, or shortness of breath. Denies chest pain, palpitations, edema, or syncope. Denies abdominal pain. Denies heartburn. Positive for nausea. Denies vaginal bleeding. Denies vaginal discharge, odor, or itching. Denies dysuria. Denies depression or anxiety. [place] Depression Scale: [place] Depression Scale Total: 3 The thought of harming myself has occurred to me.: 0 Current Outpatient Medications Medication Sig Dispense Refill Ondansetron 4 MG Oral Tablet Disintegrating (Zofran) Place 1 Tablet on tongue every 8 hours as needed for Nausea. dissolve on tongue. 45 Tablet 1 Acetaminophen 325 MG Oral Tablet (Tylenol) Take 3 Tablets by mouth every 8 hours as needed for Pain, Mild or Pain, Moderate. Alternate with Ibuprofen 30 Tablet 0 /Folic Acid+DHA 27-0.8-200 MG Oral Capsule Take by mouth . No current facility-administered medications for this visit. Review of patient's allergies indicates: No Known Allergies Physical Exam: BP 100/60 | Wt 69 kg (152 lb 3.2 oz) | LMP 01/27/2024 (Exact Date) | BMI 23.14 kg/m² | BSA 1.82 m² Please see flow sheet for the physical exam. Bed Maker Documentation Patient offered chief environmental commitment officer and declined. Assessment and Plan: Supervision of other normal , antepartum (Primary) - CBC WITH WBC DIFFERENTIAL AND ANEMIA REFLEX WORKUP; Future; Expected date: 04/24/2024 - CULTURE, URINE, QUANTITATIVE - TYPE AND SCREEN; Future; Expected date: 04/24/2024 Initial OB labs ordered today. S/p dating ultrasound. Patient declines genetic testing. Counseled patient that Tylenol is safe, but Ibuprofen or Motrin is not safe in . Advised calling the office before starting any new medications. Advised patient not to change the cat litter box. Encouraged patient to read booklet provided to patient. Made sure that patient has the triage card with phone numbers to reach OB providers. Advised patient to continue vitamin. Patient has completed the influenza vaccine. Note: Limited orders placed due to big bill with last lab work. Patient agreeable to do doing above lab orders only. Rh negative, antepartum Needs Rhogam injection at 28 weeks or if patient has vaginal bleeding. related nausea, antepartum - Ondansetron 4 MG Oral Tablet Disintegrating (Zofran); Place 1 Tablet on tongue every 8 hours as needed for Nausea. dissolve on tongue. Prescription given for Zofran. Advised patient to go to ER if she has any vaginal bleeding, lower abdominal pain, or any other unusual symptoms. Patient verbalized understanding. RTO in 4 weeks for return OB appointment or sooner if any concerns. Lisa Eaton PA-C documented in this encounter Nursing Notes * Laura Warren RN - 04/24/2024 2:21 PM EDT Pt presents for new visit. documented in this encounter Plan of Treatment Upcoming Encounters Date Type Department Care Team (Late st Contact Info) Description 05/23/2024 3:15 PM EST Office Visit Gynecology/Obstetics [place] [address] [facility] [place] [place] [address] Teena Ly PA-C [address] [place] [address] 06/20/2024 2:30 PM EST Appointment Radiology, [id number] [place] [address] 06/25/2024 3:15 PM EST Office Visit Gynecology/Obstetics [place] [address] [facility] [place] [place] [address] Teena Ly PA-C [address] [place] [address] 07/30/2024 3:15 PM EST Office Visit Gynecology/Obstetics [place] [address] [place] [address] Teena Ly PA-C [address] [place] [address] Health Maintenance Due Date Last Done Comments [...] Procedure Name Priority Date/Time Associated Diagnosis Comments CULTURE, URINE, QUANTITATIVE Routine 04/24/2024 3:20 PM EDT Supervision of other normal , antepartum documented in this encounter Results * TYPE AND SCREEN (04/24/2024 3:20 PM EDT) ABO O 04/25/2024 12:04 AM EDT [facility] Rh Negative 04/25/2024 12:04 AM EDT [facility] Red Blood Cell Antibody Screen Negative 04/25/2024 12:04 AM EDT [facility] Specimen Expiration Date 04/27/2024 23:59 04/25/2024 12:04 AM EDT [facility] Blood Venous blood specimen / Unknown Venipuncture / Unknown 04/24/2024 3:20 PM EDT 04/24/2024 3:20 PM EDT Lisa Juarez PA-C LAB BLOOD BANK TEST ORDERABLES [facility] [address] [facility] [place] [address] * CULTURE, URINE, QUANTITATIVE (04/24/2024 3:20 PM EDT) Culture Growth No significant growth 04/25/2024 4:23 PM EDT [facility] Urine Urine specimen obtained by clean catch procedure / Unknown Non-blood Collection / Unknown 04/24/2024 3:20 PM EDT 04/24/2024 3:20 PM EDT Lisa Juarez PA-C LAB MICRO - GENERAL ORDERABLES [facility] [address] [place] [address] documented in this encounter Visit Diagnoses Diagnosis Supervision of other normal , antepartum- Primary Rh negative, antepartum Rhesus isoimmunization affecting management of mother, antepartum condition related nausea, antepartum Mild hyperemesis gravidarum, antepartum documented in this encounter Advance Directives * Full Code (Latest Code Status on File) Date Activated Date Inactivated Comments 10/26/2023 3:58 PM 10/26/2023 9:05 PM This order r eflects the patients wishes and were consensually agreed upon. Question Answer Comments Discussion of Advance Direct jessica occurred with: Not Discussed due to patient's condition Care Teams Structurer Relationship Specialty Start Date End Date Kali Howard PA-C [address] [place] [id number] PCP - General Physician Finance Controller 01/11/23 documented as of this encounter"
[2024-10-26] MEDS: FERROUS SULFATE 325 MG TAB PO SCH (07:52)
[2024-10-26] MEDS: DOCUSATE SODIUM 100 MG CAP PO SCH (07:52)
[2024-10-26] MEDS ORDERED: IRON 325 MG PO SCH (09:00)
[2024-10-26] MEDS ORDERED: NON-FORMULARY MEDICATION (Pnv Cmb#95-Ferrous Fumarate-Fa [Prenatal] 28 mg iron- 800 mcg Ta PO SCH (09:00)
[2024-10-26] MEDS: ACETAMINOPHEN 325 MG TAB PO PRN (11:59)
[2024-10-27 01:19] VITALS: RESP 16
[2024-10-27 08:29] LABS: Hematocrit (blood only) 41.9 % (37.0-47.0); Hemoglobin 13.7 g/dl (12.0-16.0); Mean Corpuscular Hemoglobin 32.6 pg (25.0-34.0); Mean Corpuscular Hgb Conc 32.7 g/dL (32.0-36.0); Mean Corpuscular Volume 99.8 fL (80.0-100.0); Mean Platelet Volume 10.9 fL (9.4-12.4); Platelet Count 194 K/uL (130-400); RDW Coefficient of Variation 14.9 % (11.5-14.5); RDW Standard Deviation 54.7 fL (36.4-46.3); White Blood Count 10.65 K/ul (4.8-10.8)
[2024-10-27 09:18] VITALS: BP 116/76; TEMP 97.2; O2SAT 97
--- NOTE | 2024-10-27 10:51 | Obstetrical Progress Note ---
Date of Service October 27, 2024 Assessment & Plan (1) state: Post day #1 Vaginal delivery Pt doing well No complaints Stable vitals Stable labs. H/H: 13.7/41.9 Tolerating PO food and med Pt wishes to be discharged home Subjective Ambulation: ambulating normally Voiding: no voiding problems Passing Gas:: Yes Diet Tolerance:: regular diet Lochia:: Small Feeding Type:: breast feeding Review of Systems All systems reviewed & are unremarkable except as noted in HPI & below Physical Exam Constitutional WD/WN, vitals as above well developed and well nourished Eyes PERRL, conjunctivae normal, anicteric sclerae Neck trachea midline, no thyromegaly Respiratory normal respiratory effort, lungs clear to auscultation Auscultation: no crackles, no rales and no wheezes Cardiovascular RRR, no murmur, no edema Gastrointestinal (Abdomen) normal bowel sounds, soft, nontender, no hepatosplenomegaly Uterus is below umbilicus Musculoskeletal no cyanosis or clubbing, extremities motor strength 5/5 Skin no rashes, warm and dry Neurologic patellar DTR's 2+ bilat, sensation intact Psychiatric A+Ox3, euthymic affect Genitourinary normal external appearance Results & Data Vital Signs (Past 12 Hours) Vital Signs Temp Pulse Resp BP Pulse Ox O2 Del Method 10/27/24 08:34 36.2 C L 86 16 116/76 97 Room Air 10/27/24 00:35 36.6 C 74 16 100/64 94 Room Air
[2024-10-27 13:17] VITALS: PULSE 86
[2024-10-27] MEDS ORDERED: bisacodyL 5 MG TABEC PO SCH (20:00)
== END 2024-10-27 14:15 | disposition home or self-care (01) | DRG 807 ==
LOC: OPB 22:09 → 4S1 22:11 → 4E2 10-26 05:15